=== PATIENT | male | born 1935 | race Caucasian/White ===

== ENCOUNTER 2018-04-24 08:20 | Outpatient (CLI) | payer MEDICARE, BC, OTHER, SELFPAY ==
[2018-04-24] VITALS (14 sets, daily range): BP systolic 107–134; BP diastolic 57–108; PULSE 59–70; RESP 8–18; TEMP 35.9; O2SAT 90–100
--- NOTE | 2018-04-24 08:24 | DI.RAD.S_ITS ---
PROCEDURE: PAIN L/S MED/LAT N RFA BILAT INDICATIONS: facet arthropathy, post fusion syndrome FINDINGS: Fluoroscopic spot filming was performed to verify placement of spinal needles at the left L4-L5, L5-S1, S1-S2, and right L4-L5, L5-S1 level(s), as labeled on the films. Appropriate location(s) of the needle tip(s) was confirmed by injection of iodinated contrast. Dictated by: Joao Butler M.D. on 04/24/2018 at 17:12 Approved by: Joao Butler M.D. on 04/24/2018 at 17:16
--- NOTE | 2018-04-24 08:46 | P.PCN_ITS ---
Procedures Date/Time Date of procedure: 04/24/18 Time of procedure: 10:02 General Procedure description: PREOP DIAGNOSIS 1. RECALCITRANT FACET ARTHROPATHY, POST OP DIAGNOSIS 1. RECALCITRANT FACET ARTHROPATHY PROCEDURES 1. BILATERAL L4 AND L5 MEDIAL BRANCH RADIOFREQUENCY NEUROTOMY AND LEFT S1 DORSAL RAMUS BRANCH RADIOFREQUENCY NEUROTOMY, PHYSICIAN: Asher Whitfield DO INDICATIONS: is referred by for treatment of facet arthropathy. DESCRIPTION OF PROCEDURE Bilateral L4 and L5 medial branch radiofrequency neurotomy and left S1 dorsal ramus radiofrequency neurotomy under fluoroscopy with conscious sedation. The patient is well known to this clinic having undergone previous facet injections with good but temporary relief. The patient has experienced appropriate, concordant relief with previous facet and median branch blocks but the patient's pain has been recalcitrant to further conservative measures. Therefore, based upon the patient's relief and persistent symptoms, the patient is considered an appropriate candidate for facet rhizotomy. All of the patient' s questions regarding the risks versus benefits of the procedure, including, but not limited to, bleeding, infection, temporary as well as lasting nerve injury, paralysis, stroke, and , as well treatment alternatives were answered to satisfaction. After obtaining informed consent, denial of pertinent drug allergies, as well as being made aware of the potential risks of bleeding, infection, spinal cord trauma, paralysis, temporary and permanent nerve damage, seizure, stroke, and possible , the patient was brought to the fluoroscopy suite and positioned prone on the fluoroscopy table. The lumbar region was prepped with Betadine and covered with a fenestrated drape in the usual sterile fashion. Appropriate monitors applied including pulse oximeter, pulse, and blood pressure for regular monitoring throughout the procedure. IV sedation was accomplished with a combination of 5mg of Versed titrated to patient comfort during the course of the procedure while the patient remained responsive to all verbal commands. After local infiltration using 1% lidocaine, under fluoroscopic guidance, a 10- cm RF insulated needle with a 10-mm active tip was positioned parallel to the junction of the left sacral ala and the superior articulating process where the S1 dorsal ramus resides. Needle placement was confirmed with sensory stimulation at 50 Hz, with motor stimulation of .5v on the right which produced local stimulation without radicular component. The stimulation was then increased to 1.5v with, once again, only local multifidus stimulation without radicular component. This was then followed by two discreet lesions performed at 80 degrees Celsius for 90 seconds each. The needle was then removed and the identical procedure was performed along the length of the right L5 medial branch with motor stimulation at .7v on the right. The identical procedure was once again performed along the length of the right L4 medial branch with motor stimulation of .5v on the right. The identical procedure was repeated on the left. The patient was then transferred to the recovery area where they were observed for an appropriate period of time after the injection. The patient reported a VAS score of 9 prior to the procedure and a post-procedure VAS of 0. Total Fluoroscopy Time: 22.7 seconds Total Conscious Sedation Time: 34min POST OP INSTRUCTIONS The patient was provided a Pain Log to continue to record the patient's response to the target-specific procedure prior to the patient's follow-up visit with the referring physician. Additionally, specific post-injection care instructions and a contact number to our office were provided if concerns arise regarding possible complications associated with the procedure are suspected. Asher Whitfield DO Complications: none
[2018-04-24] MEDS: MIDAZOLAM 5 MG/5 ML VIAL IV (09:08)
[2018-04-24] MEDS: LIDOCAINE 1% 20 ML INJ INJ (09:15)
[2018-04-24] MEDS: IOPAMIDOL 15 ML VIAL INJ (09:15)
[2018-04-24] MEDS: BUPIVACAINE 0.25% (PF) 30 ML VIAL 5 ML INJ (09:15)
== END 2018-04-24 10:30 ==
PROVIDERS: Family Provider Family Medicine; PCP Family Medicine; Visit Provider Physical Medicine & Rehabilitation
DX: M47.27 Other spondylosis with radiculopathy, lumbosacral region (principal); Z98.1 Arthrodesis status; M47.26 Other spondylosis with radiculopathy, lumbar region
CPT/HCPCS: 64635; 99152; 99153; J2250; J3010

== ENCOUNTER → 2018-05-04 08:39 | Outpatient (CLI) | payer MEDICARE, BC, OTHER, SELFPAY ==
--- NOTE | 2018-05-04 | DI.ECHO.S_ITS ---
[facility] +---------+ : : [address] : : : : [id number] : : : : Phone: [phone]+ Echocardiogram Report + + :Name: TERRENCE PORTER Study Date: 05/04/2018 Height: 72 in : :[facility] Exam Location: [place] Weight: 245 lb : : Gender: Male BSA: 2.3 m2 : :: 1935 Age: 82 yrs BP: 120/65 mmHg: :Reason For Study: CAD : :Ordering Physician: Renetta Gutierrez : :[place] Performed By: Iraida Page : :Referring: Dr. Holly Goldberg : + + Interpretation Summary Normal left ventricle size with ejection fraction 55-60%. Grade I diastolic dysfunction. Moderately dilated left atrium. Mildly dilated right atrium. The aortic valve is moderately calcified with minimally reduced leaflet mobility. Mild mitral annular calcification. Moderately enlarged ascending aorta. Comparison is made with the echocardiogram of 07/16/2015, there has been no significant change. Procedure: A two-dimensional transthoracic echocardiogram with color flow and Doppler was performed. The study quality was technically adequate. Comparison is made with the echocardiogram of 07/16/2015. The patient was in sinus bradycardia with heart rates between 47-54 bpm during the exam. Left Ventricle: Left ventricular wall thickness is at the upper limits of normal. The left ventricle is normal in size. The ejection fraction is estimated to be 55-60%. There are no obvious focal wall motion abnormalities noted but poor endocardial definition reduces the sensitivity for the detection of such. Assessment of diastolic parameters indicates a relaxation abnormality of the left ventricle, consistent with normal filling pressures. Right Ventricle: The right ventricle is normal in size and function. Atria: The left atrium is moderately dilated. The right atrium is mildly dilated. There is no Doppler evidence for an interatrial shunt. Mitral Valve: The mitral valve leaflets appear thickened, but open well. There is mild mitral annular calcification. There is trace mitral regurgitation. Aortic Valve: The aortic valve is trileaflet. Leaflet mobility is minimally reduced. The aortic valve is moderately calcified. There is no hemodynamically significant valvular aortic stenosis. There is trace aortic regurgitation. Tricuspid Valve: The tricuspid valve is normal in structure and function. There is trace tricuspid regurgitation. The right ventricular systolic pressure is estimated at 30 mmHg assuming a right atrial pressure of 8 mm Hg. Pulmonic Valve: The pulmonic valve is not well visualized. There is mild pulmonic regurgitation. Great Vessels: The aortic root is normal size. The ascending aorta is moderately enlarged. The aortic arch could not be visualized. The pulmonary artery is not well visualized, but is probably normal size. The IVC is dilated (diameter is greater than 2.1 cm) yet it collapses greater than 50% with a sniff. This suggests a right atrial pressure of 8 mm Hg. Pericardium/ Pleura There is no pericardial effusion. There is no pleural effusion. MMode/2D Measurements & Calculations LVIDd: 5.5 cm LVOT diam: 2.6 cm LVIDs: 4.7 cm Ao root diam: 3.7 cm FS: 15.4 % asc Aorta Diam: 4.2 cm EPSS: 1.1 cm IVSd: 1.0 cm LVPWd: 0.94 cm LV peoples. diameter/BSA (cm/m^2): 2.4 LV sys. diameter/BSA (cm/m^2): 2.0 LA A2 area: 29.4 cm2 RA long axis: 7.1 cm LA A4 area: 31.5 cm2 RA area: 26.8 cm2 LA length (vol): 7.1 cm RA vol: 85.9 ml LA vol: 110.7 ml RA : 37.0 ml/m2 LA vol index: 47.7 ml/m2 IVC diam: 2.2 cm TAPSE: 1.7 cm Doppler Measurements & Calculations Ao V2 max: 139.4 cm/sec LVOT Max Gelacio: 75.3 cm/sec Ao V2 mean: 90.3 cm/sec LV V1 max P.3 mmHg Ao max P.8 mmHg LV V1 VTI: 16.4 cm Ao mean P.9 mmHg DANIEL(I,D): 2.8 cm2 Ao V2 VTI: 30.0 cm DANIEL(V,D): 2.8 cm2 sev ratio: 0.55 DANIEL indexed to BSA (cm^2/m^2): 1.2 MV E max gelacio: 75.9 cm/sec TR max gelacio: 232.9 cm/sec MV A max gelacio: 88.2 cm/sec TR max P.7 mmHg MV E/A: 0.86 PA V2 max: 58.8 cm/sec Med Peak E' Gelacio: 5.7 cm/sec PA V2 mean: 37.0 cm/sec E/E' med: 13.4 PA mean P.62 mmHg Lat Peak E' Gelacio: 7.2 cm/sec PA Accel Time: 0.06 sec E/E' lat: 10.5 E/e' average: 11.9 MV dec time: 0.21 sec MV P1/2t: 61.8 msec MV t max gelacio: 76.8 cm/sec MVA(2t): 3.6 cm2 Electronically signed by: Renetta Perrin on Reading Physician:05/07/2018 04:21 PM
== END ==
PROVIDERS: Family Provider Family Medicine; PCP Family Medicine; Visit Provider Internal Medicine Interventional Cardiology
DX: I25.10 Atherosclerotic heart disease of native coronary artery without angina pectoris (principal)
CPT/HCPCS: 93306

== ENCOUNTER → 2018-06-06 19:28 | Outpatient (REF) | payer MEDICARE, BC, OTHER, SELFPAY | LOC: LAB 19:28 | PROVIDERS: Family Provider Family Medicine; PCP Family Medicine; Visit Provider Physician Assistant | DX: L82.1 Other seborrheic keratosis (principal); L02.212 Cutaneous abscess of back [any part, except buttock and flank] | CPT/HCPCS: 87070; 87075; 87205 ==

== ENCOUNTER → 2018-06-12 15:25 | Outpatient (REF) | payer MEDICARE, BC, OTHER, SELFPAY | LOC: LAB 15:25 | PROVIDERS: Family Provider Family Medicine; PCP Family Medicine; Visit Provider Dermatology MOHS-Micrographic Surgery | DX: L72.0 Epidermal cyst (principal) | CPT/HCPCS: 87070; 87075; 87205 ==

== ENCOUNTER → 2018-06-25 12:46 | Outpatient (CLI) | payer MEDICARE, BC, OTHER, SELFPAY ==
--- NOTE | 2018-06-25 12:49 | DI.RAD.S_ITS ---
PROCEDURE: XR KNEE RT 3V INDICATIONS: Knee DJD TECHNIQUE: 3 views of the knee were acquired. COMPARISON: None. FINDINGS: Bones: No fractures or dislocations. No suspicious bony lesions. There are small tricompartmental osteophytes. Soft tissues: No joint effusion. No suspicious soft tissue calcifications. A soft tissue calcification is present superior to the patella which may represent a small intra-articular body. There are scattered soft tissue vascular calcifications. IMPRESSION: 1. Mild degenerative change. 2. Questionable intra-articular body. Dictated by: Kimberly Rahman M.D. on 06/25/2018 at 14:39 Approved by: Kimberly Rahman M.D. on 06/25/2018 at 14:40
--- NOTE | 2018-06-25 12:49 | DI.RAD.S_ITS ---
PROCEDURE: XR KNEE LT 3V INDICATIONS: Knee DJD TECHNIQUE: 3 views of the knee were acquired. COMPARISON: None. FINDINGS: Bones: No fractures or dislocations. No suspicious bony lesions. There are small tricompartmental osteophytes. Soft tissues: No joint effusion. No suspicious soft tissue calcifications. Surgical clips are scattered throughout the soft tissues. There are scattered soft tissue vascular calcifications. IMPRESSION: Degenerative change. Dictated by: Kimberly Rahman M.D. on 06/25/2018 at 14:39 Approved by: Kimberly Rahman M.D. on 06/25/2018 at 14:39
== END ==
PROVIDERS: Family Provider Family Medicine; PCP Family Medicine; Visit Provider Physical Medicine & Rehabilitation
DX: M17.0 Bilateral primary osteoarthritis of knee (principal)
CPT/HCPCS: 73562

== ENCOUNTER 2018-11-08 13:21 | Emergency (ER) | payer MEDICARE, BC, OTHER, SELFPAY ==
--- NOTE | 2018-11-08 13:28 | ED_ITS ---
HPI - Fall <Sheryl Sharma PA-C - Last Filed: 11/08/18 21:32> General Chief Complaint: Back Pain/Injury Stated Complaint: FELL, NECK AND SHOULDER PAIN Time Seen by Provider: 11/08/18 13:26 Source: patient Mode of arrival: ambulatory Limitations: no limitations History of Present Illness HPI Narrative: this 83-year-old gentleman states that a large Labrador jumped up on his chest to grab a duck (he was out hunting with friends) pushing him backward, and he fell onto his bottom. He landed on the dirt, and states that this jolted his back and spine. He states that he did not hit his head or neck, but felt his neck snap back and forth, and since then has pain when he moves his neck. He states that he does not have pain in his shoulders or extremities. He denies any weakness or numbness in the extremities, and was able to get up and walk. He denies any changes in bowel or bladder function nor groin numbness. He did not hit his head or neck or pass out. His friends who are with him concur with this. Related Data Home Medications Medication Instructions Recorded Confirmed ASCORBIC ACID (VITAMIN C) 1,000 mg PO Q DAY #0 06/28/11 08/09/18 BIOTIN/CA PANTOTHENATE/FOLIC2 1 tab PO Q DAY #0 06/28/11 08/09/18 (VITAMIN B100) [place]/Calcium/Copper/[place] 1 tab PO Q DAY #0 06/28/11 08/09/18 (#CALCIUM CITRATE +) CA PANTOTHENATE/FOLIC ACID/VIT 1 tab PO QDAY #0 06/28/11 08/09/18 (MULTIVITAMIN) GLUC MEYER/CHONDRO MEYER A/VIT C/MN 1 cap PO Q DAY #0 06/28/11 08/09/18 (Glucosamine 1,500 Complex Cp) NITROGLYCERIN (#NITROSTAT) 0.4 mg SUBLINGUAL PRN #0 06/28/11 08/09/18 VITAMIN D (Vitamin D3) 1,000 unit PO QDAY #0 06/28/11 08/09/18 aspirin 81 mg PO QDAY #0 06/28/11 08/09/18 cetirizine 10 mg PO QDAY #0 12/23/17 08/09/18 acetaminophen 325 mg capsule 650 mg PO Q6H PRN 04/12/18 08/09/18 allopurinol 300 mg tablet 300 mg PO DAILY 04/12/18 11/08/18 finasteride 5 mg tablet 5 mg PO DAILY 04/12/18 11/08/18 fluticasone 50 mcg/actuation nasal 2 spray NASAL DAILY 04/12/18 08/09/18 spray,suspension folic acid 1 mg tablet 1 mg PO DAILY 04/12/18 11/08/18 lisinopril 10 mg tablet 10 mg PO DAILY 04/12/18 11/08/18 metoprolol tartrate 25 mg tablet 12.5 mg PO BID tab 04/12/18 11/08/18 nitroglycerin 0.4 mg sublingual 0.4 mg SL Q5M PRN 04/12/18 08/09/18 tablet omeprazole 20 mg capsule,delayed 20 mg PO BID 04/12/18 11/08/18 release atorvastatin 80 mg PO DAILY 11/08/18 11/08/18 warfarin [Jantoven] 4 mg PO DAILY 11/08/18 11/08/18 Previous Rx's Medication Instructions Recorded disabled parking See Label Instructions .ROUTE 04/12/18 .COMPLEX #1 lidocaine 4 % topical patch 1 patch TOP Q12H PRN #30 each 05/10/18 Allergies Allergy/AdvReac Type Severity Reaction Status Date / Time lorazepam AdvReac Intermediate HALLUCINATIONS; Verified 11/08/18 13:30 ICU REQUIRED chlorpromazine AdvReac Mild HICCUPS Verified 11/08/18 13:30 Review of Systems <Sheryl Sharma PA-C - Last Filed: 11/08/18 21:32> Review of Systems All systems reviewed & are unremarkable except as noted in HPI and below Exam <Sheryl Sharma PA-C - Last Filed: 11/08/18 21:32> Narrative Exam Narrative: GENERAL APPEARANCE: Patient sitting comfortably, in no distress. HEENT: PERRL, EOMI, normal oropharynx PULMONARY: Lungs clear to auscultation bilaterally CV: Regular rhythm regular without murmur, , occasional single skips, normal S1 and S2, no S3 or S4 MUSCULOSKELETAL: No point tenderness over the cervical, thoracic, or lumbar / sacral spine. no point tenderness over the cervical paraspinal musculature. He is able to fully flex the neck, but is tender with bilateral lateral bend which is reduced more to the left and right. Also reduced neck rotation with tenderness. Full range of motion of the upper extremities without tenderness. Strength 5/5 bilateral shoulder shrug, biceps, ft plantar flexion. Lower extremity strength 5/5 bilateral hip flexors, knee extensors, foot plantar flexion. NEUROLOGIC: Patient is alert and oriented with normal speech and coordination Initial Vital Signs Initial Vital Signs: Vital Signs Temperature 97.8 F 11/08/18 13:30 Pulse Rate 59 L 11/08/18 13:30 Respiratory Rate 15 11/08/18 13:30 Blood Pressure 145/64 H 11/08/18 13:30 Pulse Oximetry 98 11/08/18 13:30 <Kentrell Palafox DO - Last Filed: 11/08/18 22:44> Initial Vital Signs Initial Vital Signs: Vital Signs Temperature 97.8 F 11/08/18 13:30 Pulse Rate 59 L 11/08/18 13:30 Respiratory Rate 15 11/08/18 13:30 Blood Pressure 145/64 H 11/08/18 13:30 Pulse Oximetry 98 11/08/18 13:30 Course <Sheryl Sharma PA-C - Last Filed: 11/08/18 21:32> Additional Information: patient does not have any evidence of acute spine injury, no bony point tenderness or paravertebral tenderness. No new neurologic symptoms. Advised based on this and his history I do not think imaging is needed, however reviewed signs and symptoms for which he might need to return. He is agreeable with using medications he already has at home and monitoring, and will follow up with PCP. He will return if any acutely worsening or new symptoms. Orders Ordered: Discontinued Medications Acetaminophen (Tylenol) 325 mg PO Q6HR PRN PRN Reason: As Needed for Fever/Mild Pain Last Admin: 11/08/18 14:00 Dose: 325 mg Tramadol HCl (Ultram) 50 mg PO NOW ONE Stop: 11/08/18 13:51 Last Admin: 11/08/18 14:01 Dose: 50 mg Vital Signs - 8 hr 11/08/18 14:02 11/08/18 14:39 Pulse Rate 63 64 Respiratory Rate 18 Blood Pressure 106/63 Blood Pressure [Right Arm] 127/66 Pulse Oximetry 98 96 <DO Siobhan Guadalupe Last Filed: 11/08/18 22:44> Orders Ordered: Discontinued Medications Acetaminophen (Tylenol) 325 mg PO Q6HR PRN PRN Reason: As Needed for Fever/Mild Pain Last Admin: 11/08/18 14:00 Dose: 325 mg Tramadol HCl (Ultram) 50 mg PO NOW ONE Stop: 11/08/18 13:51 Last Admin: 11/08/18 14:01 Dose: 50 mg Vital Signs - 8 hr 11/08/18 14:02 11/08/18 14:39 Pulse Rate 63 64 Respiratory Rate 18 Blood Pressure 106/63 Blood Pressure [Right Arm] 127/66 Pulse Oximetry 98 96 Discharge Plan Departure Patient Disposition: Home Clinical Impression: Acute whiplash injury, Contusion of coccyx, History of pulmonary embolism Discharge Date/Time: 11/08/18 14:40 Interventions: ED Discharge Assessment Last Done: 11/08/18 14:39 Instructions: DI for Whiplash Activity Restrictions/Additional Instructions: please return as we talked about if you have acutely worsening symptoms, or new symptoms such as weakness or numbness in your extremities, or difficulty urinating. you can take your tramadol that you have at home for pain. Take 1 tablet every 4-6 hours with a Tylenol as needed. You can use the Valium that you already have as needed for muscle tightness, but remember that these medicines can make you sleepy and not to drive. Continue to use an ice pack today and you may want to change to a heating pad or alternate them tomorrow. You can also use [id number] topical rubs such as Lit-Martinez or patches such as lidocaine patch to help with pain. Please follow-up with your PCP next week to assess your progress in determine whether you might need further treatment such as physical therapy. Prescriptions: No Action ASCORBIC ACID (VITAMIN C) 1,000 mg PO Q DAY Qty: 0 RF: 0 aspirin 81 MG tablet,delayed release (DR/EC) 81 mg PO QDAY Qty: 0 RF: 0 BIOTIN/CA PANTOTHENATE/FOLIC2 (VITAMIN B100) 1 tab PO Q DAY Qty: 0 RF: 0 [place]/Calcium/Copper/[place] (#CALCIUM CITRATE +) 1 tab PO Q DAY Qty: 0 RF: 0 CA PANTOTHENATE/FOLIC ACID/VIT (MULTIVITAMIN) 1 tab PO QDAY Qty: 0 RF: 0 GLUC MEYER/CHONDRO MEYER A/VIT C/MN (Glucosamine 1,500 Complex Cp) 1 cap PO Q DAY Qty: 0 RF: 0 NITROGLYCERIN (#NITROSTAT) 0.4 mg Sublingual PRN Qty: 0 RF: 0 VITAMIN D (Vitamin D3) 1,000 unit PO QDAY Qty: 0 RF: 0 cetirizine 10 MG tablet 10 mg PO QDAY Qty: 0 RF: 0 atorvastatin 80 mg tablet 80 mg PO DAILY RF: 0 warfarin [Jantoven] 4 mg tablet 4 mg PO DAILY RF: 0 lidocaine 4 % adhesive patch,medicated 1 patch TOP Q12H PRN (Reason: pain) Qty: 30 RF: 2 betamethasone acet,sod phos 6 mg/mL suspension 12 mg INTRA-ASHLY ONCE Qty: 1 RF: 0 metoprolol tartrate 25 mg tablet 12.5 mg PO BID RF: 0 allopurinol 300 mg tablet 300 mg PO DAILY RF: 0 lisinopril 10 mg tablet 10 mg PO DAILY RF: 0 finasteride [Proscar] 5 mg tablet 5 mg PO DAILY RF: 0 omeprazole 20 mg capsule,delayed release(DR/EC) 20 mg PO BID RF: 0 fluticasone 50 mcg/actuation spray,suspension 2 spray NASAL DAILY RF: 0 nitroglycerin [Nitrostat] 0.4 mg tablet, sublingual 0.4 mg SL Q5M PRNRF: 0 acetaminophen [Tylenol] 325 mg capsule 650 mg PO Q6H PRNRF: 0 folic acid 1 mg tablet 1 mg PO DAILY RF: [address] See Label Instructions .ROUTE .COMPLEX Qty: 1 RF: 0 Referrals: Holly Goldberg MD [Primary Care Provider] - <Kentrell Palafox DO - Last Filed: 11/08/18 22:44> Cosign ED Attending Cosignature Attestation: I was available for consultation during this patient's emergency department encounter
[2018-11-08 13:30] VITALS: BP 145/64; PULSE 59; RESP 15; TEMP 36.6; O2SAT 98; BMI 33.2
[2018-11-08] MEDS: ACETAMINOPHEN 325 MG TABLET PO (14:00)
[2018-11-08] MEDS: TRAMADOL 50 MG TABLET PO (14:01)
[2018-11-08 14:02] VITALS: BP 127/66; PULSE 63; O2SAT 98
[2018-11-08 14:39] VITALS: BP 106/63; PULSE 64; RESP 18; O2SAT 96
== END 2018-11-08 14:40 | disposition home or self-care (01) ==
PROVIDERS: Emergency Provider Internal Medicine; Family Provider Family Medicine; PCP Family Medicine
DX: S13.4XXA Sprain of ligaments of cervical spine, initial encounter (principal); S30.0XXA Contusion of lower back and pelvis, initial encounter; W54.1XXA Struck by dog, initial encounter; Z86.711 Personal history of pulmonary embolism
CPT/HCPCS: 99282; 99283

== ENCOUNTER → 2018-12-06 09:04 | Outpatient (CLI) | payer MEDICARE, BC, OTHER, SELFPAY ==
--- NOTE | 2018-12-06 | DI.CT.S_ITS ---
PROCEDURE: CT ABDOMEN WO/W CON INDICATIONS: HISTORY OF RENAL CELL CARCINOMA TECHNIQUE: Optional 5 mm thick noncontrast images acquired from the diaphragm to the iliac crests. After the administration of intravenous contrast, 5 mm thick images again acquired from the diaphragm to the iliac crests in the arterial and urographic phases. 5 mm thick coronal and sagittal reformats were then acquired. For radiation dose reduction, the following was used: automated exposure control, adjustment of mA and/or kV according to patient size. COMPARISON: [facility], CT, ANGIO CHEST ABDOMEN PELVIS, 12/23/2017, 3:56. [facility], CT, ABDOMEN W&WO CONTRAST, 06/24/2015, 10:11. FINDINGS: Image quality: Excellent. Lung bases: There is a small right lower lobe pulmonary nodule measuring up to 0.7 cm which appears similar to the prior study studies. Small subpleural nodules in the left lower lobe on images 12 and 19 and measuring up to 4 mm also appear unchanged. Minimal dependent atelectasis is demonstrated. Heart size is normal. Genitourinary: There are postoperative changes redemonstrated within the medial right kidney consistent with prior partial nephrectomy. 2 stable right renal cysts are demonstrated as well as additional small low-density foci which are too small to characterize but appears similar to the prior study and likely represent cysts. Small cysts are also demonstrated within the left kidney. There is a fat containing exophytic mass anteriorly along the left kidney measuring up to 4.0 x 2.8 cm which appears stable compared to the prior studies and is consistent with potential mild pulmonary no hydronephrosis. The opacified renal collecting systems demonstrate no suspicious filling defects. Other solid organs: No focal hepatic lesions identified. The gallbladder is surgically absent. Biliary system is non dilated. Pancreas enhances normally. Spleen is normal in size and enhancement. No adrenal nodules. Peritoneum and bowel: Unenhanced bowel loops are normal in wall thickness and caliber. No free fluid or air. Nodes and vessels: No retroperitoneal or mesenteric adenopathy by size criteria. Aorta and inferior vena cava are normal in caliber. Bones: No suspicious bony lesions. No vertebral body compression fractures. Miscellaneous: No ventral hernias. IMPRESSION: 1. No evidence of new recurrent or metastatic disease. 2. Postsurgical changes redemonstrated in the right kidney. 3. Small pulmonary nodules in the lung bases appear stable compared to the prior studies. Dictated by: Tim Olvera M.D. on 12/06/2018 at 13:57 Approved by: Tim Olvera M.D. on 12/06/2018 at 14:31
[2018-12-06 10:18] LABS: Alanine Aminotransferase 40 IU/L (21-72); Albumin 4.1 g/dL (3.5-5.0); Albumin Globulin Ratio 1.6 (1.0-2.8); Alkaline Phosphatase 109 U/L (38-126); Aspartate Aminotransferase 33 IU/L (17-59); BUN Creatinine Ratio 19.1 (6-22); Bilirubin Total 0.7 mg/dL (0.2-1.3); Blood Urea Nitrogen 21 mg/dL (9-20); Carbon Dioxide 28 mmol/L (22-32); Chloride 102 mmol/L (98-107); Estimated Glomerular Filt Rate > 60.0 mL/min (>60); Globulin 2.5 g/dL (1.7-4.1); Glucose 98 mg/dL (80-110); HEMOLYSIS < 15 (0-50); Potassium 4.7 mmol/L (3.4-5.1); Sodium 140 mmol/L (137-145); Total Protein 6.6 g/dL (6.3-8.2)
== END ==
PROVIDERS: PCP Family Medicine; Visit Provider Urology
DX: N28.1 Cyst of kidney, acquired (principal); R91.8 Other nonspecific abnormal finding of lung field; Z85.528 Personal history of other malignant neoplasm of kidney; Z90.49 Acquired absence of other specified parts of digestive tract
CPT/HCPCS: 36415; 74170; 80053; Q9967

== ENCOUNTER → 2018-12-20 12:39 | Outpatient (CLI) | payer MEDICARE, BC, OTHER, SELFPAY ==
--- NOTE | 2018-12-20 | DI.RAD.S_ITS ---
PROCEDURE: XR CHEST 2V INDICATIONS: HISTORY OF RENAL CELL CARCINOMA TECHNIQUE: 2 views of the chest were acquired. COMPARISON: [facility], , CHEST 1 VIEW, 12/23/2017, 3:01. [facility], , CHEST 2 VIEW, 06/27/2017, 15:33. FINDINGS: Surgical changes and devices: Surgical clips suggestive of prior CABG. Lungs and pleura: No pleural effusions or pneumothorax. Lungs are clear. Mediastinum: Mediastinal contours are normal. Heart size is normal. Bones and chest wall: No suspicious bony abnormalities. Soft tissues appear unremarkable. IMPRESSION: Stable over time, presumed prior CABG. No metastatic disease seen. Dictated by: Abelardo Kate M.D. on 12/20/2018 at 14:47 Approved by: Abelardo Kate M.D. on 12/20/2018 at 14:55
== END ==
PROVIDERS: PCP Family Medicine; Visit Provider Urology
DX: Z85.528 Personal history of other malignant neoplasm of kidney (principal)
CPT/HCPCS: 71046

== ENCOUNTER → 2019-05-15 11:33 | Outpatient (CLI) | payer MEDICARE, BC, OTHER, SELFPAY ==
--- NOTE | 2019-05-15 | DI.RAD.S_ITS ---
PROCEDURE: XR ABDOMEN 1V INDICATIONS: Calculus of kidney TECHNIQUE: One view of the abdomen acquired. COMPARISON: None. FINDINGS: Surgical changes and devices: None. Bowel: Bowel gas pattern is normal. Soft tissues: 5.5 mm triangular shaped calcification is seen projecting the region of lower pole left kidney. Multiple surgical clips are noted in the region of right renal fossa. No definite right sided renal calcification is seen. Small calcifications are noted in bilateral pelvis, likely represent phleboliths. Visualized solid organ contours appear normal in size. Bones: No suspicious bony lesions. Patient is status post prior right posterior fusion at L5-S1 level and right hip arthroplasty. IMPRESSION: 5.5 mm calcification in the region of lower pole left kidney. Postsurgical changes in right renal fossa. Suggestion of phlebolith in the lower pelvis. Dictated by: Giacomo Fowler M.D. on 05/15/2019 at 13:52 Approved by: Giacomo Fowler M.D. on 05/15/2019 at 13:53
== END ==
PROVIDERS: PCP Family Medicine; Visit Provider Urology
DX: N20.0 Calculus of kidney (principal); Z98.1 Arthrodesis status; Z96.641 Presence of right artificial hip joint
CPT/HCPCS: 74018

== ENCOUNTER 2019-05-16 08:47 | Outpatient (CLI) | payer MEDICARE, BC, OTHER, SELFPAY ==
[2019-05-16] VITALS (8 sets, daily range): BP systolic 103–127; BP diastolic 52–70; PULSE 56–61; RESP 16–18; TEMP 36.6; O2SAT 97–100
--- NOTE | 2019-05-16 08:51 | DI.RAD.S_ITS ---
PROCEDURE: PAIN L/S FACET INJ/BLK 1ST DEEPALI COMPARISON: None. INDICATIONS: SPINAL STENOSIS Fluoroscopic spot filming was performed to verify placement of spinal needles at the L3-4 and L4-L5 level(s), as labeled on the films. Appropriate location(s) of the needle tip(s) was confirmed by injection of iodinated contrast. Dictated by: Joao Butler M.D. on 05/17/2019 at 8:43 Approved by: Joao Butler M.D. on 05/17/2019 at 8:44
[2019-05-16] MEDS: fentaNYL 100 MCG/2 ML INJ 50 MCG IV (10:15)
[2019-05-16] MEDS: MIDAZOLAM 5 MG/5 ML VIAL IV (10:15)
--- NOTE | 2019-05-16 10:27 | PC.NURSE ---
pt tolerated procedure well. Able to get of table with minimal assist, pt moving very slowly related to back pain. Transferred pt via wheelchair to pre procedure room for continued monitoring with Meghna YOU.
--- NOTE | 2019-05-16 10:29 | P.PCN_ITS ---
Procedures Date/Time Date of procedure: 05/16/19 Time of procedure: 10:28 General Procedure description: PREOP DIAGNOSIS 1. FACET ARTHROPATHY 2. AXIAL LBP 3. MULTILEVEL DDD POST OP DIAGNOSIS 1. FACET ARTHROPATHY 2. AXIAL LBP 3. MULTILEVEL DDD PROCEDURES 1. FLUORSCOPICALLY GUIDED CONTRAST CONTROLLED FACET JOINT INJECTIONS BILATERAL L3/4, L4/5 PHYSICIAN: Asher Whitfield DO INDICATIONS: Ulices is referred by Dr. Goldberg for treatment of Axial LBP FINDINGS Multilevel Facet Arthropathy with Clinically significant axial LBP DESCRIPTION OF PROCEDURE Fluoroscopically guided, contrast-controlled bilateral L3/4, L4/5 facet joint injections. Following review of allergy and review of potential side effects and complications, including, but not necessarily limited to, infection, allergic reaction, local tissue breakdown, stroke, temporary or permanent nerve injury, paralysis, and possible , the patient indicated that the patient understood and agreed to proceed. An informed consent document was signed by the patient, witnessed by a nurse, and placed in the patient's chart. Additionally, other treatment options including medications, modalities, and physical therapy were reviewed with the patient. After review of previous anaesthesic history and IV conscious sedation the patient was deemed safe to proceed with todays procedure with IV conscious sedation as ASA class II designation. Safety time-out was performed to confirm patient ID, procedure to be performed and site of procedure. IV sedation was accomplished with a combination of 2mg of Versed and 50mcg of Fentanyl was administered by the RN after DO order, titrated to patient comfort during the course of the procedure while the patient remained responsive to all verbal commands. In the prone position, following sterile prep and drape of the lumbar region, the posterior aspect of the L3/4, L4/5 facet joints were identified fluoroscopically. The skin was anesthetized via a 25-gauge 1.5-inch needle with 1% lidocaine solution into the corresponding facet joints. At this point, a 22- gauge 3.5-inch spinal needle was atraumatically introduced and advanced under fluoroscopic guidance into the corresponding facet joints. Following negative aspiration, injections of approximately 0.2-cc of Isovue 200 confirmed interarticular placement without vascular uptake. The identical procedure was then performed at the L3/4, L4/5 facet joints on the left. Radiological data, including multiple fluoroscopic views of the lumbosacral spine, reveal a spinal needle at the L3/4, L4/5 facet joints bilaterally. Subsequent views show flow of contrast material both superiorly and inferiorly within the joint space without vascular or intrathecal uptake. At this point, a total of 0.5 cc including a mixture of 0.25 cc Marcaine and 0.25 cc betamethasone was injected without complication into each of the corresponding facet joints. The patient tolerated the procedure well without signs or symptoms of complications prior to transfer to the recovery area continued monitoring without incident. The patient was then transferred to the recovery area where they were observed for an appropriate period of time after the injection. The patient reported a VAS score of 7 prior to the procedure and a post-procedure VAS of 0. Total Fluoroscopy Time: 20.3 seconds Total Conscious Sedation Time: 24min POST OP INSTRUCTIONS The patient was provided a Pain Log to continue to record their response to the target-specific procedure prior to follow-up visit with their referring physician. Additionally, specific post-injection care instructions and a contact number to our office were provided if concerns arise regarding possible complications associated with the procedure are suspected. Asher Whitfield DO Complications: none
--- NOTE | 2019-05-16 10:40 | PC.NURSE ---
ACCEPTED CARE OF PT IN POST PROC AREA IN STABLE CONDITION
[2019-05-16] MEDS: BUPIVACAINE 0.5% (PF) VIAL 2 ML INJ (10:41)
[2019-05-16] MEDS: BETAMETHASONE 30 MG/5 ML MDV 12 MG INJ (10:41)
[2019-05-16] MEDS: LIDOCAINE 1% 20 ML INJ 5 ML INJ (10:41)
[2019-05-16] MEDS: IOPAMIDOL 15 ML VIAL 3 ML INJ (10:41)
== END 2019-05-16 11:19 | disposition home or self-care (01) ==
LOC: RAD 08:50
PROVIDERS: PCP Family Medicine; Visit Provider Physical Medicine & Rehabilitation
DX: M47.816 Spondylosis without myelopathy or radiculopathy, lumbar region (principal); M54.5 Low back pain; M51.36 Other intervertebral disc degeneration, lumbar region
CPT/HCPCS: 64493; 64494; 99152; J0702; J2250; J3010

== ENCOUNTER 2019-09-03 11:07 | Outpatient (CLI) | payer MEDICARE, BC, OTHER, SELFPAY ==
[2019-09-03] VITALS (11 sets, daily range): BP systolic 107–144; BP diastolic 54–75; PULSE 54–73; RESP 16; TEMP 35.9; O2SAT 94–100
--- NOTE | 2019-09-03 11:10 | DI.RAD.S_ITS ---
PROCEDURE: PAIN L/S MED/LAT N RFA INDICATIONS: SPONDYLOSIS FINDINGS: Fluoroscopic spot filming was performed to verify placement of spinal needles at the L3, L4 and L5 level(s), as labeled on the films. Appropriate location(s) of the needle tip(s) was confirmed by injection of iodinated contrast. IMPRESSION: Fluoroscopy for pain management. Dictated by: Concepcion Cheek M.D. on 09/03/2019 at 18:10 Approved by: Concepcion Cheek M.D. on 09/03/2019 at 18:11
[2019-09-03] MEDS: MIDAZOLAM 5 MG/5 ML VIAL IV (12:14)
[2019-09-03] MEDS: fentaNYL 100 MCG/2 ML INJ 50 MCG IV (12:14)
[2019-09-03] MEDS: LIDOCAINE 1% 20 ML 10 ML INJ (12:26)
[2019-09-03] MEDS: BETAMETHASONE 30 MG/5 ML MDV 12 MG INJ (12:26)
[2019-09-03] MEDS: BUPIVACAINE 0.5% (PF) VIAL 2 ML INJ (12:26)
--- NOTE | 2019-09-03 12:34 | PC.NURSE ---
ASSISTING PT OFF TABLE AND TRANSPORTING TO POST PROC AREA IN STABLE CONDITION. PASSING RN CARE OF PT OFF THE DESTINEE Pedraza RN.
--- NOTE | 2019-09-03 12:43 | P.PCN_ITS ---
Procedures Date/Time Date of procedure: 09/03/19 Time of procedure: 12:43 General Procedure description: PREOP DIAGNOSIS 1. RECALCITRANT FACET ARTHROPATHY, POST OP DIAGNOSIS 1. RECALCITRANT FACET ARTHROPATHY PROCEDURES 1. RIGHT L3, L4 AND L5 MEDIAL BRANCH RADIOFREQUENCY NEUROTOMY PHYSICIAN: Asher Whitfield DO INDICATIONS: Ulices is referred by Dr. Goldberg for treatment of facet arthropathy. DESCRIPTION OF PROCEDURE Right L3, L4 and L5 medial branch radio-frequency neurotomy The patient is well known to this clinic having undergone previous facet injections with good but temporary relief. The patient has experienced wiley ropriate, concordant relief with previous facet and median branch blocks but the patient's pain has been recalcitrant to further conservative measures. Therefore, based upon the patient's relief and persistent symptoms, the patient is considered an appropriate candidate for facet rhizotomy. All of the patient's questions regarding the risks versus benefits of the procedure, including, but not limited to, bleeding, infection, temporary as well as lasting nerve injury, paralysis, stroke, and , as well treatment alternatives were answered to satisfaction. After obtaining informed consent, denial of pertinent drug allergies, as well as being made aware of the potential risks of bleeding, infection, spinal cord trauma, paralysis, temporary and permanent nerve damage, seizure, stroke, and possible , the patient was brought to the fluoroscopy suite and positioned prone on the fluoroscopy table. The lumbar region was prepped with Betadine and covered with a fenestrated drape in the usual sterile fashion. Appropriate monitors applied including pulse oximeter, pulse, and blood pressure for regular monitoring throughout the procedure. After review of previous anaesthesic history and IV conscious sedation the patient was deemed safe to proceed with todays procedure with IV conscious sedation as ASA class II designation. Safety time-out was performed to confirm patient ID, procedure to be performed and site of procedure. IV sedation was accomplished with a combination of 2mg of Versed and 50mcg of Fentanyl administered by the RN after DO order, titrated to patient comfort during the course of the procedure while the patient remained responsive to all verbal commands. After local infiltration using 1% lidocaine, under fluoroscopic guidance, a 10- cm RF insulated needle with a 10-mm active tip was positioned parallel to the junction of the right the superior articulating process where the L3 medial branch resides. Needle placement was confirmed with sensory stimulation at 50 Hz, with motor stimulation of .5v on the right which produced local stimulation without radicular component. The stimulation was then increased to 1.5v with, once again, only local multifidus stimulation without radicular component. This was then followed by two discreet lesions performed at 80 degrees Celsius for 90 seconds each. The needle was then removed and the identical procedure was performed along the length of the right L4 medial branch with motor stimulation at .7v on the right. The identical procedure was once again performed along the length of the right L5 and medial branch with motor stimulation of .5v on the right. The patient tolerated the procedure well without signs or symptoms of complications prior to transfer to the recovery area continued monitoring without incident. The patient was then transferred to the recovery area where they were observed for an appropriate period of time after the injection. The patient reported a VAS score of 9 prior to the procedure and a post-procedure VAS of 0. Total Fluoroscopy Time: 22.7 seconds Total Conscious Sedation Time: 34min POST OP INSTRUCTIONS The patient was provided a Pain Log to continue to record the patient's response to the target-specific procedure prior to the patient's follow-up visit with the referring physician. Additionally, specific post-injection care instructions and a contact number to our office were provided if concerns arise regarding possible complications associated with the procedure are suspected. Asher Whitfield DO Complications: none
--- NOTE | 2019-09-03 16:53 | PC.NURSE ---
Late entry: Discharge note- VSS, O2 Sat WNL, Tolerating PO. No complaints of unusual numbness or tingling to lower extremity. Able to stand without difficulty independently. Transfered to W/C. discharged to home w/c to car.
== END 2019-09-03 13:25 ==
LOC: RAD 11:10
PROVIDERS: Family Provider Family Medicine; PCP Family Medicine; Visit Provider Physical Medicine & Rehabilitation
DX: M47.816 Spondylosis without myelopathy or radiculopathy, lumbar region (principal)
CPT/HCPCS: 64635; 64636; 99152; 99153; J0702; J2250; J3010

== ENCOUNTER → 2019-09-18 16:02 | Outpatient (CLI) | payer MEDICARE, BC, OTHER, SELFPAY ==
--- NOTE | 2019-09-18 16:13 | DI.RAD.S_ITS ---
PROCEDURE: XR LUMBAR SPINE MIN 4V INDICATIONS: Recent fall status post fusion TECHNIQUE: 5 views of the lumbar spine acquired. COMPARISON: [facility] VERA Quintanilla, SPINE LUMB 2 OR 3VW, 01/06/2016, 9:49. [facility] VERA Quintanilla, XR LUMBAR SPINE WITH OBLIQUES, 09/19/2017, 15:15. FINDINGS: Bones: 5 nonrib-bearing vertebrae are present. There is normal bony alignment. No vertebral body compression fractures. No suspicious bony lesions. Right pedicle screws in mehran at the L5-S1 level unchanged from prior examination. Grade 1 spondylolisthesis again seen at the L5-S1 level which appears similar to prior examination. Multilevel disc degeneration, severe at the L5-S1 level and there is moderate to severe lower lumbar spine facet joint arthropathy . Right hip arthroplasty incompletely visualized. Soft tissues: Overlying bowel gas pattern is normal. No suspicious soft tissue calcifications. Right upper quadrant surgical clips. Flexion/extension: There is normal range of motion, with preserved normal alignment. IMPRESSION: 1. Stable postsurgical changes at the L5-S1 level. 2. Multilevel degenerative change again seen throughout the lumbar spine. Dictated by: Les MARQUES Interpreted: Bolivar García MD on 09/18/2019 at 16:33 Approved by: Bolivar García M.D. on 09/18/2019 at 17:23
== END ==
PROVIDERS: PCP Family Medicine; Visit Provider Physical Medicine & Rehabilitation
DX: M47.816 Spondylosis without myelopathy or radiculopathy, lumbar region (principal); M47.817 Spondylosis without myelopathy or radiculopathy, lumbosacral region; Z98.1 Arthrodesis status; Z96.641 Presence of right artificial hip joint
CPT/HCPCS: 72110; 99214

== ENCOUNTER → 2019-12-04 08:47 | Outpatient (CLI) | payer MEDICARE, BC, OTHER, SELFPAY ==
--- NOTE | 2019-12-04 | DI.CT.S_ITS ---
PROCEDURE: CT ABDOMEN WO/W CON INDICATIONS: History of renal cell carcinoma TECHNIQUE: Optional 5 mm thick noncontrast images acquired from the diaphragm to the iliac crests. After the administration of intravenous contrast, 5 mm thick images again acquired from the diaphragm to the iliac crests in the arterial and urographic phases. 5 mm thick coronal and sagittal reformats were then acquired. For radiation dose reduction, the following was used: automated exposure control, adjustment of mA and/or kV according to patient size. COMPARISON: [facility], CT, KIDNEY/ URETER/BLADDER, 06/03/2016, 13:21. [facility], CT, THORAX WITHOUT CONTRAST, 12/15/2016, 14:24. [facility], CT, ANGIO CHEST ABDOMEN PELVIS, 12/23/2017, 3:56. [facility], CT, CT ABDOMEN WO/W CON, 12/06/2018, 9:45. FINDINGS: Image quality: Excellent. Lung bases: There are 2 small nodules in the left lower lobe measuring up to 4 mm which appear stable compared to the prior studies. Heart size is normal. Genitourinary: Postsurgical changes are redemonstrated status post partial right nephrectomy. Bilateral renal cysts are redemonstrated. These include a small exophytic hyperdense cyst laterally in the left kidney measuring up to 1.3 cm. Along the anterior superior aspect of the left kidney, there is an exophytic mass lesion containing internal macroscopic fat measuring up to 3.9 x 2.9 x 2.7 cm which appears stable in size compared to the prior studies. 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 There is no hydronephrosis. 2 small nonobstructing stones are demonstrated in the left kidney, measuring up to 0.6 cm within the inferior pole. The opacified renal collecting systems demonstrate no suspicious filling defects. Mild nonspecific perinephric stranding is redemonstrated bilaterally. The visualized ureters are nondistended. Other solid organs: There is a small focal hypodensity redemonstrated within the anterior right hepatic lobe which is too small to characterize but likely represents a cyst. The gallbladder is surgically absent. Biliary system is non-dilated. Pancreas enhances normally. No peripancreatic fat stranding or fluid collections. No pancreatic duct dilatation. The spleen is normal in size. No adrenal nodules. The right adrenal gland is irregular in appearance likely reflecting a partial adrenalectomy. Findings are similar to the prior studies. Peritoneum and bowel: Visualized bowel loops are normal in wall thickness and caliber. No free fluid or air. Nodes and vessels: No retroperitoneal or mesenteric adenopathy by size criteria. Aorta and inferior vena cava are normal in caliber. Bones: No suspicious bony lesions. No vertebral body compression fractures. Miscellaneous: No ventral hernias. IMPRESSION: 1. No evidence of new recurrent or metastatic disease in the abdomen. 2. Postsurgical changes consistent with partial right nephrectomy redemonstrated. 3. Bilateral renal cysts including a hyperdense exophytic left renal cyst. 4. Left nephrolithiasis without hydronephrosis. 5. Exophytic fat containing lesion in the left kidney appears stable in size and likely represents an angiomyolipoma. Dictated by: Tim Olvera M.D. on 12/04/2019 at 13:22 Approved by: Tim Olvera M.D. on 12/04/2019 at 13:33
--- NOTE | 2019-12-04 | DI.RAD.S_ITS ---
PROCEDURE: XR CHEST 2V INDICATIONS: History of renal cell carcinoma TECHNIQUE: 2 views of the chest were acquired. COMPARISON: [facility], CT, CT ABDOMEN WO/W CON, 12/06/2018, 9:45. [facility], CR, XR CHEST 2V, 12/20/2018, 12:55. [facility], CR, CHEST 1 VIEW, 12/23/2017, 3:01. FINDINGS: Surgical changes and devices: Surgical clips left chest, previously present. Lungs and pleura: Lungs are clear. No pleural effusions or pneumothorax. Mediastinum: Mediastinal contours are normal. Heart size is normal. Bones and chest wall: No suspicious bony abnormalities. Soft tissues appear unremarkable. IMPRESSION: Prior surgical clips stable over time, left chest anteriorly. No metastatic disease is found. Dictated by: Abelardo Kate M.D. on 12/04/2019 at 9:42 Approved by: Abelardo Kate M.D. on 12/04/2019 at 9:44
[2019-12-04 09:17] LABS: Alanine Aminotransferase 136 IU/L (<50); Albumin Globulin Ratio 1.6 (1.0-2.8); Alkaline Phosphatase 101 U/L (38-126); Aspartate Aminotransferase 103 IU/L (17-59); BUN Creatinine Ratio 16.4 (6-22); Bilirubin Total 0.9 mg/dL (0.2-1.3); Blood Urea Nitrogen 18 mg/dL (9-20); Calcium 8.7 mg/dL (8.4-10.2); Carbon Dioxide 33 mmol/L (22-32); Chloride 103 mmol/L (98-107); Estimated Glomerular Filt Rate > 60.0 mL/min (>60); Globulin 2.5 g/dL (1.7-4.1); Glucose 118 mg/dL (80-110); HEMOLYSIS < 15 (0-50); Potassium 4.3 mmol/L (3.4-5.1); Sodium 139 mmol/L (137-145); Total Protein 6.5 g/dL (6.3-8.2)
== END ==
PROVIDERS: PCP Family Medicine; Visit Provider Urology
DX: N28.1 Cyst of kidney, acquired (principal); N20.0 Calculus of kidney; N28.9 Disorder of kidney and ureter, unspecified; R91.8 Other nonspecific abnormal finding of lung field; Z85.528 Personal history of other malignant neoplasm of kidney; Z90.49 Acquired absence of other specified parts of digestive tract
CPT/HCPCS: 36415; 71046; 74170; 80053; Q9967

== ENCOUNTER → 2020-01-29 12:07 | Outpatient (CLI) | payer MEDICARE, BC, OTHER, SELFPAY ==
--- NOTE | 2020-01-29 12:10 | DI.RAD.S_ITS ---
PROCEDURE: XR SHOULDER LT MIN 2V INDICATIONS: left shoulder djd TECHNIQUE: 3 views of the shoulder were acquired. COMPARISON: None. FINDINGS: Bones: No fractures or dislocations but there is moderate degenerative osteoarthritic change at the a.c. joint and also the glenohumeral articulation.. No suspicious bony lesions. Visualized ribs appear intact. Soft tissues: No suspicious soft tissue calcifications. 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 No subluxation found. Dictated by: Abelardo Kate M.D. on 01/29/2020 at 14:06 Approved by: Abelardo Kate M.D. on 01/29/2020 at 14:06
== END ==
PROVIDERS: PCP Family Medicine; Referring Provider Family Medicine; Visit Provider Physical Medicine & Rehabilitation
DX: M75.42 Impingement syndrome of left shoulder (principal); M19.012 Primary osteoarthritis, left shoulder
CPT/HCPCS: 20611; 73030; 99213; J0702

== ENCOUNTER → 2020-04-03 09:42 | Outpatient (CLI) | payer MEDICARE, BC, OTHER, SELFPAY ==
--- NOTE | 2020-04-03 09:44 | DI.MRI.S_ITS ---
PROCEDURE: MR LUMBAR SPINE WO CON INDICATIONS: Back pain status post fusion TECHNIQUE: Noncontrast sagittal T1 spin echo and T2 fast echo, sagittal STIR, axial T1 and T2 fast spin echo through the lumbar spine. In cases with scoliosis, additional coronal T2 fast spin echo may be performed. COMPARISON: [facility], CR, XR LUMBAR SPINE MIN 4V, 09/18/2019, 16:15. [facility], MR, L-SPINE WITHOUT CONTRAST, 09/18/2017, 16:50. FINDINGS: Image quality: Excellent. Alignment and Curvature: Remote univentricular rate posterior lateral mehran and pedicle screw fixation at L5-S1. Unchanged mild grade 1 anterolisthesis of L5 on S1. Other vertebral bodies are normally aligned. Bone Marrow: Marrow is of normal overall signal. No acute vertebral body compression fractures. Spinal Cord: Conus medullaris terminates at the L1-L2 level. Visualized cord demonstrates normal signal and size. Paraspinous Soft Tissues: No paravertebral masses. T12-L1: Unchanged. Mild disc bulge. Mild facet hypertrophy. No canal stenosis. Mild to moderate bilateral foraminal stenosis. L1-L2: Unchanged. Mild disc bulge. Facet ligament hypertrophy. No significant canal stenosis. Mild bilateral foraminal stenosis. L2-L3: Unchanged. Mild disc bulge. Facet and ligament hypertrophy. Mild canal stenosis. Mild bilateral foraminal stenosis. L3-L4: Unchanged. Disc bulge. Remote right foramina may. Bilateral facet hypertrophy. Mild canal stenosis and left lateral recess stenosis. Moderate bilateral foraminal stenosis with flattening deformity on the exiting bilateral L3 nerve roots. L4-L5: Unchanged. Mild disc bulge. Prominent bilateral facet arthropathy. Mild canal stenosis. Moderate right and mild to moderate left foraminal narrowing with mild flattening deformity on the bilateral exiting L4 nerve roots. L5-S1: Unchanged. Right posterior laminectomy. No canal stenosis. Moderate right foraminal narrowing with mild flattening deformity on the exiting right L5 nerve root. Mild left foraminal narrowing. IMPRESSION: 1. Stable findings. 2. Multilevel postsurgical change. 3. Multilevel facet arthropathy. 4. Stable mild multilevel canal stenosis. Stable multilevel foraminal narrowing. Dictated by: Pankaj Ho M.D. on 04/03/2020 at 10:29 Approved by: Pankaj Ho M.D. on 04/03/2020 at 11:33
== END ==
PROVIDERS: PCP Family Medicine; Referring Provider Physical Medicine & Rehabilitation; Visit Provider Physical Medicine & Rehabilitation
DX: M54.9 Dorsalgia, unspecified (principal); M47.817 Spondylosis without myelopathy or radiculopathy, lumbosacral region; M47.816 Spondylosis without myelopathy or radiculopathy, lumbar region; M46.96 Unspecified inflammatory spondylopathy, lumbar region; M48.061 Spinal stenosis, lumbar region without neurogenic claudication; M48.07 Spinal stenosis, lumbosacral region; Z98.1 Arthrodesis status
CPT/HCPCS: 72148

== ENCOUNTER → 2020-05-11 13:09 | Outpatient (CLI) | payer MEDICARE, BC, OTHER, SELFPAY ==
[2020-05-12 08:52] LABS: COVID19 Sendout Not Detected (Not Detect)
== END ==
PROVIDERS: PCP Family Medicine; Visit Provider Physician Assistant
DX: Z01.812 Encounter for preprocedural laboratory examination (principal)
CPT/HCPCS: 87635

== ENCOUNTER 2020-05-14 10:27 | Outpatient (CLI) | payer MEDICARE, BC, OTHER, SELFPAY ==
[2020-05-14 10:41] VITALS: BP 120/69; PULSE 69; RESP 18; TEMP 36; O2SAT 99
--- NOTE | 2020-05-14 11:24 | DI.RAD.S_ITS ---
PROCEDURE: XR KNEE RT 3V INDICATIONS: knee djd TECHNIQUE: 3 views of the knee were acquired. COMPARISON: [facility], CR, XR KNEE RT 3V, 06/25/2018, 12:26. FINDINGS: Bones: No fractures or dislocations. No suspicious bony lesions. Chronic calcification seen in superior to the patella which is unchanged since 2018, possibly dystrophic calcification versus loose body. Scattered degenerative subchondral sclerosis and spurring. Soft tissues: Small joint effusion. No suspicious soft tissue calcifications. Scattered vascular calcifications. IMPRESSION: Mild degenerative joint disease, grossly unchanged Suprapatellar calcification as above Small joint effusion. If the patient's pain or other symptoms persist, consider further evaluation with MRI Dictated by: Joao Butler M.D. on 05/14/2020 at 13:34 Approved by: Joao Butler M.D. on 05/14/2020 at 13:36
--- NOTE | 2020-05-14 11:24 | DI.RAD.S_ITS ---
PROCEDURE: XR KNEE LT 3V INDICATIONS: KNEE PAIN TECHNIQUE: 3 views of the knee were acquired. COMPARISON: [facility], CR, XR KNEE RT 3V, 06/25/2018, 12:26. FINDINGS: Bones: No fractures or dislocations. No suspicious bony lesions. Scattered degenerative subchondral sclerosis and spurring. Mild narrowing of the medial joint space. Soft tissues: No joint effusion. No suspicious soft tissue calcifications. Scattered surgical clips. Scattered vascular calcifications IMPRESSION: Mild degenerative joint disease. No interval change Dictated by: Joao Butler M.D. on 05/14/2020 at 13:21 Approved by: Joao Butler M.D. on 05/14/2020 at 13:28
--- NOTE | 2020-05-14 11:49 | PC.NURSE ---
Pt arrived for proc today. After talking with Dr Whitfield, a mutual decision was reached that the procedure would not move forward as schd. Knee xrays were order and will be reviewed together at pts regularly schd appt in May. IV was removed and pt discharged per MD orders
== END 2020-05-14 11:43 | disposition home or self-care (01) ==
PROVIDERS: PCP Family Medicine; Referring Provider Physical Medicine & Rehabilitation; Visit Provider Physical Medicine & Rehabilitation
DX: M25.561 Pain in right knee (principal); M17.0 Bilateral primary osteoarthritis of knee; M25.861 Other specified joint disorders, right knee; M25.461 Effusion, right knee; M47.9 Spondylosis, unspecified; M47.816 Spondylosis without myelopathy or radiculopathy, lumbar region; M51.36 Other intervertebral disc degeneration, lumbar region
CPT/HCPCS: 73562; J2250; J3010

== ENCOUNTER → 2020-08-01 14:10 | Outpatient (CLI) | payer MEDICARE, BC, OTHER, SELFPAY ==
[2020-08-04 15:45] LABS: COVID19 Sendout Not Detected (Not Detect)
== END ==
PROVIDERS: PCP Family Medicine; Visit Provider Physician Assistant
DX: Z11.59 Encounter for screening for other viral diseases (principal)
CPT/HCPCS: 87635

== ENCOUNTER 2020-08-04 10:51 | Outpatient (CLI) | payer MEDICARE, BC, OTHER, SELFPAY ==
[2020-08-04] VITALS (7 sets, daily range): BP systolic 106–159; BP diastolic 62–75; PULSE 56–65; RESP 12–24; TEMP 36.1; O2SAT 92–100
--- NOTE | 2020-08-04 10:53 | DI.RAD.S_ITS ---
PROCEDURE: PAIN L/S MED/LAT N RFA INDICATIONS: SPONDYLOSIS COMPARISON: [facility], , PAIN L/S MED/LAT N RFA, 09/03/2019, 12:10. FINDINGS: Fluoroscopic spot filming was performed to verify placement of spinal needles at the L3, L4, L5 level(s), as labeled on the films. Appropriate location(s) of the needle tip(s) was confirmed by injection of iodinated contrast. Dictated by: Joao Butler M.D. on 08/04/2020 at 15:01 Approved by: Joao Butler M.D. on 08/04/2020 at 15:01
[2020-08-04 11:34] LABS: COVID19 -Nasal RAPID Negative (Negative)
[2020-08-04] MEDS: MIDAZOLAM 5 MG/5 ML VIAL IV (12:00)
[2020-08-04] MEDS: fentaNYL 100 MCG/2 ML INJ 50 MCG IV (12:00)
[2020-08-04] MEDS: BUPIVACAINE 0.5% (PF) VIAL 5 ML INJ (12:06)
[2020-08-04] MEDS: LIDOCAINE 1% 20 ML 10 ML INJ (12:06)
--- NOTE | 2020-08-04 12:31 | P.PCN_ITS ---
Date/Time/Diagnoses Date of procedure: 08/04/20 Time of procedure: 12:31 Pre-procedure diagnosis: 1. RECALCITRANT FACET ARTHROPATHY Post-procedure diagnosis: same Procedure Notes Procedure: 1. BILATERAL L3, L4 AND L5 MEDIAL BRANCH RADIOFREQUENCY NEUROTOMY Indications: Ulices is referred by for treatment of facet arthropathy. Physician: Asher Whitfield Total Fluoroscopy time (seconds): 8 Total sedation minutes: 23 Complications: none Procedure in detail & Post-procedure care: DESCRIPTION OF PROCEDURE Bilateral L3, L4 and L5 medial branch radiofrequency neurotomy The patient is well known to this clinic having undergone previous facet injections with good but temporary relief. The patient has experienced appropriate, concordant relief with previous facet and median branch blocks but the patient's pain has been recalcitrant to further conservative measures. Therefore, based upon the patient's relief and persistent symptoms, the patient is considered an appropriate candidate for facet rhizotomy. All of the patient's questions regarding the risks versus benefits of the procedure, including, but not limited to, bleeding, infection, temporary as well as lasting nerve injury, paralysis, stroke, and , as well treatment alternatives were answered to satisfaction. After obtaining informed consent, denial of pertinent drug allergies, as well as being made aware of the potential risks of bleeding, infection, spinal cord trauma, paralysis, temporary and permanent nerve damage, seizure, stroke, and possible , the patient was brought to the fluoroscopy suite and positioned prone on the fluoroscopy table. The lumbar region was prepped with Betadine and covered with a fenestrated drape in the usual sterile fashion. Appropriate monitors applied including pulse oxim eter, pulse, and blood pressure for regular monitoring throughout the procedure. After review of previous anaesthesic history and IV conscious sedation the patient was deemed safe to proceed with today's procedure with IV conscious sedation as ASA class II designation. Safety time-out was performed to confirm patient ID, procedure to be performed and site of procedure. IV sedation was accomplished with a combination of 2mg of Versed and 50mcg of Fentanyl administered by the RN after DO order, titrated to patient comfort during the course of the procedure while the patient remained responsive to all verbal commands. After local infiltration using 1% lidocaine, under fluoroscopic guidance, a 10- cm RF insulated needle with a 10-mm active tip was positioned parallel to the junction of the right the superior articulating process where the L5 medial branch resides. Needle placement was confirmed with motor stimulation of .5v on the right which produced local stimulation without radicular component. The stimulation was then increased to 2v with, once again, only local multifidus stimulation without radicular component. The needle was then removed and the identical procedure was performed along the length of the right L4 medial branch with motor stimulation at .7v on the right. The identical procedure was once again performed along the length of the right L3 and medial branch with motor stimulation of .5v on the right. The medial branches were then anesthetised with 0.5% marcaine. This was then followed by two discreet lesions performed at 80 degrees Celsius for 90 seconds each. The identical procedures were repeated on the left. The patient tolerated the procedure well without signs or symptoms of complications prior to transfer to the recovery area continued monitoring without incident. The patient was then transferred to the recovery area where they were observed for an appropriate period of time after the injection. The patient reported a VAS score of 7 prior to the procedure and a post-procedure VAS of 0. POST OP INSTRUCTIONS The patient was provided a Pain Log to continue to record the patient's response to the target-specific procedure prior to the patient's follow-up visit with the referring physician. Additionally, specific post-injection care instructions and a contact number to our office were provided if concerns arise regarding possible complications associated with the procedure are suspected.
== END 2020-08-04 12:55 | disposition home or self-care (01) ==
LOC: RAD 10:52
PROVIDERS: PCP Family Medicine; Referring Provider Family Medicine; Visit Provider Physical Medicine & Rehabilitation
DX: M47.816 Spondylosis without myelopathy or radiculopathy, lumbar region (principal); Z11.59 Encounter for screening for other viral diseases
CPT/HCPCS: 64635; 64636; 87635; 99152; 99153; J2250; J3010

== ENCOUNTER → 2020-10-27 10:30 | Outpatient (CLI) | payer MEDICARE, BC, OTHER, SELFPAY ==
[2020-10-27 11:22] LABS: COVID19 -Nasal RAPID Negative (Negative)
== END ==
PROVIDERS: PCP Family Medicine; Visit Provider Physical Medicine & Rehabilitation
DX: Z01.812 Encounter for preprocedural laboratory examination (principal); Z11.59 Encounter for screening for other viral diseases
CPT/HCPCS: 87635; C9803

== ENCOUNTER 2020-10-29 10:10 | Outpatient (CLI) | payer MEDICARE, BC, OTHER, SELFPAY ==
[2020-10-29] VITALS (8 sets, daily range): BP systolic 127–153; BP diastolic 65–85; PULSE 59–68; RESP 16–19; TEMP 36; O2SAT 96–100
--- NOTE | 2020-10-29 10:11 | DI.RAD.S_ITS ---
PROCEDURE: PAIN SI JOINT INJECTION INDICATIONS: SACROCOCCYGEAL DISORDER COMPARISON: None. FINDINGS: Fluoroscopic spot filming was performed to verify placement of spinal needles at the inferior right sacroiliac level(s), as labeled on the films. Appropriate location(s) of the needle tip(s) was confirmed by injection of iodinated contrast. IMPRESSION: Successful needle tip localization for inferior right sacroiliac joint steroid injection. Dictated by: Abelardo Kate M.D. on 10/29/2020 at 12:17 Approved by: Abelardo Kate M.D. on 10/29/2020 at 12:17
[2020-10-29] MEDS: MIDAZOLAM 5 MG/5 ML VIAL IV (11:45)
[2020-10-29] MEDS: BUPIVACAINE 0.5% (PF) VIAL 2 ML INJ (11:49)
[2020-10-29] MEDS: IOPAMIDOL 15 ML VIAL 3 ML INJ (11:49)
[2020-10-29] MEDS: BETAMETHASONE 30 MG/5 ML MDV 12 MG INJ (11:49)
--- NOTE | 2020-10-29 11:56 | PM.PROC.IR.1 ---
Date/Time/Diagnoses Date of procedure: 10/29/20 Time of procedure: 11:56 Pre-procedure diagnosis: Sacroiliac joint pain/DJD Post-procedure diagnosis: same Procedure Notes Procedure: Fluoroscopically guided contrast controlled right sacroiliac joint injection Indications: Guerrero is referred by Dr. Goldberg for treatment of right sacroiliac joint DJD Physician: Asher Whitfield Total Fluoroscopy time (seconds): 8 Total sedation minutes: 8 Complications: none Procedure in detail & Post-procedure care: DESCRIPTION OF PROCEDURE Fluoroscopically guided, contrast controlled right sacroiliac joint injection Following review of allergies and review of potential side effects and complications, including, but not necessarily limited to, infection, allergic reaction, local tissue breakdown, temporary as well as permanent nerve injury, paralysis, stroke and possible , the patient indicated that they understood and agreed to proceed. An informed consent was signed by the patient, witnessed by a nurse, and placed in the patient's chart. Additionally, other treatment options including modalities, medications, and physical therapy were reviewed with the patient. After review of previous anaesthesic history and IV conscious sedation the patient was deemed safe to proceed with today?s procedure with IV conscious sedation as ASA class II designation. Safety time-out was performed to confirm patient ID, procedure to be performed and site of procedure. IV sedation was accomplished with a combination of 2mg of Versed was administered by the RN after DO order, titrated to patient comfort during the course of the procedure while the patient remained responsive to all verbal commands In the prone position following sterile prep and drape of the pelvic region, the hyper lucency on in the inferior aspect of the sacroiliac joint was identified fluoroscopically the skin was anesthetized be a 25 gauge 1 eventual with approximately 2 cc of 1% lidocaine solution. At this point, a 22 gauge 3 in spinal needle was atraumatically introduced and advanced under fluoroscopic guidance into the inferior aspect of the right sacroiliac joint. Following negative aspiration, approximately 0.3cc of [id number]-300 was injected confirming intra-articular placement without vascular uptake. Radiographic data, including multiple fluoroscopic views of the pelvis, reveals a spinal needle in the sacroiliac joint hyper lucent zone. Subsequent view show flow contrast tear superiorly and inferiorly within the joint capsule without vascular intrathecal uptake. At this point a total of 1 of 0.5% Marcaine was combined with 1cc of 6 mg of betamethasone was injected without incident. The procedure tolerated the procedure well without signs or symptoms of complications prior to transfer to the recovery area continued monitoring without incident. The patient was then transferred to the recovery area with a bur observed for an appropriate time after the injection. The patient reverted a vas score of 7 prior to the procedure and post-procedure vas of 1. POSTOP INSTRUCTIONS The patient was provided with a pain like to continue to record the patient's response to the target specific procedure prior to the patient's follow-up visit with the referring physician. Additionally, specific post injection care instructions and a contact number to our office were provided if concerns arise regarding the possible complications associated with procedure are suspected.
--- NOTE | 2020-10-29 12:22 | PC.NURSE ---
ambulated well independently to baseline prior to discharge. tolerated cookies and coffee. no pain upon discharge.
== END 2020-10-29 12:17 | disposition home or self-care (01) ==
LOC: RAD 10:11
PROVIDERS: PCP Family Medicine; Referring Provider Physical Medicine & Rehabilitation; Visit Provider Physical Medicine & Rehabilitation
DX: M53.3 Sacrococcygeal disorders, not elsewhere classified (principal); M46.1 Sacroiliitis, not elsewhere classified
CPT/HCPCS: 27096; 99152; J0702; J2250; J3010

== ENCOUNTER 2020-11-01 18:29 | Emergency (ER) | payer MEDICARE, BC, OTHER, SELFPAY ==
[2020-11-01] VITALS (18 sets, daily range): BP systolic 110–159; BP diastolic 55–68; PULSE 52–71; RESP 13–24; TEMP 36.7; O2SAT 93–98; BMI 33.9
--- NOTE | 2020-11-01 18:37 | ED.CHESTPAIN ---
HPI - Chest Pain General Chief Complaint: Chest Pain Stated Complaint: Chest pain Time Seen by Provider: 11/01/20 18:36 Source: patient and EMS Mode of arrival: EMS Limitations: no limitations History of Present Illness HPI narrative: Patient is a 85-year-old male with history of 6 way bypass presenting today with chest pain. He said he woke up early to go duck hunting of a use an ATV to get around so not a lot of walking but he did start noticing some sharp pain on the left side radiating through to his back. He made at home for lunch but really was not hungry he continue to watch football and rest but the pain progressively got worse. He took 2 nitro at home which seemed to help and EMS was eventually called. They gave him aspirin and nitro prior to arrival he is currently chest pain-free. He denies any cough or shortness of breath. He is followed by [facility] cardiology Dr. Jazzmine DAVIDSON complaint: chest pain Onset (ago): hour(s) Duration: progressively worsening and now resolved Pain location: left chest Severity: moderate Quality: sharp Pain radiation: back Relieving factors: nitroglycerin Exacerbating factors: nothing Related Data Home Medications Medication Instructions Recorded Confirmed ASCORBIC ACID (VITAMIN C) 1,000 mg PO Q DAY #0 06/28/11 11/01/20 [place]/Calcium/Copper/Mangane 1 tab PO Q DAY #0 06/28/11 11/01/20 (#CALCIUM CITRATE +) CA PANTOTHENATE/FOLIC ACID/VIT 1 tab PO QDAY #0 06/28/11 11/01/20 (MULTIVITAMIN) GLUC MEYER/CHONDRO MEYER A/VIT C/MN 1 cap PO Q DAY #0 06/28/11 11/01/20 (Glucosamine 1,500 Complex Cp) aspirin 81 mg PO QDAY #0 06/28/11 11/01/20 cetirizine 10 mg PO QDAY #0 12/23/17 11/01/20 acetaminophen 325 mg capsule 650 mg PO Q6H PRN 04/12/18 11/01/20 finasteride 5 mg tablet 5 mg PO DAILY 04/12/18 11/01/20 fluticasone propionate 50 2 spray NASAL PRN PRN 04/12/18 11/01/20 mcg/actuation nasal spray,suspension folic acid 1 mg tablet 1 mg PO DAILY 04/12/18 11/01/20 lisinopril 10 mg tablet 10 mg PO DAILY 04/12/18 11/01/20 nitroglycerin 0.4 mg sublingual 0.4 mg SL Q5M PRN 04/12/18 11/01/20 tablet omeprazole 20 mg capsule,delayed 20 mg PO BID 04/12/18 11/01/20 release allopurinol 300 mg tablet 300 mg PO DAILY tab 06/12/19 11/01/20 atorvastatin 80 mg tablet 80 mg PO DAILY tab 03/31/20 11/01/20 metoprolol succinate 25 mg 12.5 mg PO BID tab 03/31/20 11/01/20 tablet,extended release 24 hr tamsulosin 0.4 mg capsule 0.4 mg PO DAILY 03/31/20 11/01/20 dabigatran etexilate 150 mg capsule 150 mg PO BID cap 06/03/20 11/01/20 Previous Rx's Medication Instructions Recorded disabled parking See Rx Instructions .ROUTE 04/12/18 .COMPLEX #1 tramadol 50 mg tablet 50 mg PO BID PRN #60 tab 06/29/20 Allergies Allergy/AdvReac Type Severity Reaction Status Date / Time chlorpromazine Allergy Severe HALLUCINATI Verified 11/01/20 18:57 [From Thorazine] ONS lorazepam [From Ativan] Allergy Severe HALLUCINATI Verified 11/01/20 18:57 ONS Review of Systems Review of Systems Narrative: GENERAL: Denies chills, fatigue, malaise, fever, sweats, travel HEENT: Denies sinus pain, ear pain, sore throat, difficulty swallowing, neck pain RESPIRATORY: Denies dyspnea, cough, wheezing, hemoptysis, sputum. CARDIOVASCULAR: See HPI GASTROINTESTINAL: Denies nausea, vomiting, abdominal pain, diarrhea, constipation, melena. : Denies dysuria, frequency, incontinence, hematuria, urinary retention, flank pain. MUSCULOSKELETAL: Denies weakness, joint pain, or bony pain SKIN: No rash, no erythema, no pruritus NEUROLOGIC: Denies weakness, dizziness, headache, numbness, change in speech, confusion PSYCHIATRIC: No concerning psychosocial issues. 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 HEENT: Head atraumatic,EOMI, pupils reactive, face symmetric, moist mucous membranes CARDIOVASCULAR: Regular rate and rhythm without murmurs, rubs or gallops. RESPIRATORY: Breath sounds equal bilaterally, no wheezes rales or rhonchi. ABDOMEN: Soft, nontender. Normoactive bowel sounds all 4 quadrants. No guarding or rebound. Multiple scars on abdomen incisional hernia noted EXTREMITIES: Normal range of motion, no clubbing or edema. Neurovascularly intact NEUROLOGICAL: Alert and oriented x4.Normal gait and speech. Cranial nerves II through XII grossly intact. SKIN: Warm, dry, no laceration, no petechiae, no rashes or lesions. Course Orders Ordered: ED Orders 11/01/20 18:36 XR chest 1V Stat EKG-12 Lead Stat 11/01/20 18:40 Complete Blood Count AUTO DIFF Stat Comprehensive Metabolic Panel Stat Lipase Stat NT-proBNP (BNP-Adult 18+) Stat Partial Thromboplastin Time Stat Prothrombin Time INR Stat Troponin & CK Cardiac Panel Stat 11/01/20 20:24 Troponin I Stat 11/01/20 21:20 COVID19 Stat Vital Signs Vital signs: Vital Signs - 8 hr 11/01/20 18:33 11/01/20 18:35 11/01/20 19:00 Temperature 98.1 F Pulse Rate 61 62 55 L Respiratory Rate 18 13 Blood Pressure 159/68 H Pulse Oximetry 98 98 96 11/01/20 19:01 11/01/20 19:30 11/01/20 20:00 Temperature Pulse Rate 55 L 54 L 58 L Respiratory Rate 13 18 16 Blood Pressure 117/59 L 110/57 L 127/61 Pulse Oximetry 95 93 95 11/01/20 20:30 11/01/20 20:31 11/01/20 21:00 Temperature Pulse Rate 53 L 52 L 52 L Respiratory Rate 20 19 19 Blood Pressure 122/55 L Pulse Oximetry 97 97 95 11/01/20 21:01 11/01/20 21:30 11/01/20 21:31 Temperature Pulse Rate 53 L 71 60 Respiratory Rate 20 24 22 Blood Pressure 121/58 L 156/68 H Pulse Oximetry 95 11/01/20 22:00 11/01/20 22:01 Temperature Pulse Rate 55 L 53 L Respiratory Rate 14 17 Blood Pressure 139/63 Pulse Oximetry MDM - Chest Pain Lab Data Attestation: I reviewed the patient's lab results. Result diagrams: 11/01/20 18:40 11/01/20 18:40 Labs: Lab Results 11/01/20 11/01/20 11/01/20 Range/Units 18:40 18:40 18:40 WBC 8.1 (4.5-11.0) X10^3/uL RBC 4.59 (4.5-5.9) X10^6/uL Hgb 14.9 (13.5-17.5) g/dL Hct 44.1 (41-53) % MCV 96.0 (80-100) fL MCH 32.4 (26-34) PG MCHC 33.8 (30-36) % RDW 13.5 (11.6-14.8) % Plt Count 203 (150-400) X10^3/uL Neut % (Auto) 55.7 (50-75) % Lymph % (Auto) 31.3 (25-40) % Terry % (Auto) 11.5 (3-14) % Eos % (Auto) 0.8 L (2-4) % Baso % (Auto) 0.7 (0-2) % Neut # (Auto) 4500 (6216-6915) /uL Lymph # (Auto) 2500 (9840-2622) /uL Terry # (Auto) 900 (0-900) /uL Eos # (Auto) 100 (0-450) /uL Baso # (Auto) 100 (0-100) /uL PT 12.6 (10.1-12.7) SECONDS INR 1.1 (0.9-1.3) APTT 35 (26.4-36.2) SECONDS Sodium 137 (137-145) mmol/L Potassium 4.4 (3.4-5.1) mmol/L Chloride 103 (98-107) mmol/L Carbon Dioxide 29 (22-32) mmol/L BUN 26 H (9-20) mg/dL Creatinine 1.21 (0.66-1.25) mg/dL Estimated GFR 56.9 L (>60) mL/min BUN/Creatinine Ratio 21.5 (6-22) Glucose 115 H (80-110) mg/dL Calcium 8.7 (8.4-10.2) mg/dL Total Bilirubin 0.9 (0.2-1.3) mg/dL AST 42 (17-59) IU/L ALT 29 (<50) IU/L Alkaline Phosphatase 76 (38-126) U/L Total Creatine Kinase 75 (55-170) U/L CK-MB (CK-2) TNP CK-MB (CK-2) Rel Index TNP Troponin I 0.020 (0.01-0.034) ng/mL NT-Pro-B Natriuret Pep 123 (<450) pg/mL Total Protein 6.9 (6.3-8.2) g/dL Albumin 4.0 (3.5-5.0) g/dL Globulin 2.9 (1.7-4.1) g/dL Albumin/Globulin Ratio 1.4 (1.0-2.8) Lipase 103 (23-300) U/L COVID-19 PCR (Negative) 11/01/20 11/01/20 Range/Units 20:24 21:20 WBC (4.5-11.0) X10^3/uL RBC (4.5-5.9) X10^6/uL Hgb (13.5-17.5) g/dL Hct (41-53) % MCV (80-100) fL MCH (26-34) PG MCHC (30-36) % RDW (11.6-14.8) % Plt Count (150-400) X10^3/uL Neut % (Auto) (50-75) % Lymph % (Auto) (25-40) % Terry % (Auto) (3-14) % Eos % (Auto) (2-4) % Baso % (Auto) (0-2) % Neut # (Auto) (8417-7144) /uL Lymph # (Auto) (9156-2268) /uL Terry # (Auto) (0-900) /uL Eos # (Auto) (0-450) /uL Baso # (Auto) (0-100) /uL PT (10.1-12.7) SECONDS INR (0.9-1.3) APTT (26.4-36.2) SECONDS Sodium (137-145) mmol/L Potassium (3.4-5.1) mmol/L Chloride (98-107) mmol/L Carbon Dioxide (22-32) mmol/L BUN (9-20) mg/dL Creatinine (0.66-1.25) mg/dL Estimated GFR (>60) mL/min BUN/Creatinine Ratio (6-22) Glucose (80-110) mg/dL Calcium (8.4-10.2) mg/dL Total Bilirubin (0.2-1.3) mg/dL AST (17-59) IU/L ALT (<50) IU/L Alkaline Phosphatase (38-126) U/L Total Creatine Kinase (55-170) U/L CK-MB (CK-2) CK-MB (CK-2) Rel Index Troponin I 0.061 H (0.01-0.034) ng/mL NT-Pro-B Natriuret Pep (<450) pg/mL Total Protein (6.3-8.2) g/dL Albumin (3.5-5.0) g/dL Globulin (1.7-4.1) g/dL Albumin/Globulin Ratio (1.0-2.8) Lipase (23-300) U/L COVID-19 PCR Negative (Negative) Imaging Data Chest x-ray: Radiologist's Impression: PROCEDURE: XR CHEST 1V INDICATIONS: chest pain TECHNIQUE: One view of the chest was acquired. COMPARISON: [facility], CR, XR CHEST 2V, 12/20/2018, 12:55. [facility], CR, XR CHEST 2V, 12/04/2019, 9:05. FINDINGS: Surgical changes and devices: Multiple surgical clips in the mediastinum. Lungs and pleura: Left basilar opacity may be infiltrate, atelectasis or scarring. No pleural effusions or pneumothorax. Mediastinum: Mediastinal contours appear normal. Heart size is normal. Bones and chest wall: No suspicious bony lesions. Overlying soft tissues appear unremarkable. IMPRESSION: Left basilar infiltrate, atelectasis or scarring Dictated by: Concepcion Cheek M.D. on 11/01/2020 at 19:10 ECG Data Attestation: I personally reviewed and interpreted this ECG as follows: Prior ECG tracings: available for review Interpretation: EKG 1. Normal sinus rhythm right a 62 p.r. interval [address] changes similar to previous EKG in 2018 EKG 2. Sinus rhythm rate 53 a T-wave inversion noted in lead 3 also present on previous EKG MDM Narrative Medical decision making narrative: Patient has remained chest pain-free in the ED. I do not appreciate any EKG changes. Repeat troponin at the 2 hour chanel has risen into the indeterminate range. Based on patient's history of coronary artery disease and previously under controlled angina this is very atypical for him. 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 22:40-Dr. Hopkins hospitalist updated patient's symptoms and test results accepts for transfer Discharge Plan Departure Patient Disposition: General Acute Hospital Clinical Impression: Chest pain Qualifiers: Chest pain type: unspecified Qualified Code(s): R07.9 - Chest pain, unspecified Prescriptions: No Action ASCORBIC ACID (VITAMIN C) 1,000 mg PO Q DAY Qty: 0 RF: 0 aspirin 81 MG tablet,delayed release (DR/EC) 81 mg PO QDAY Qty: 0 RF: 0 [place]/Calcium/Copper/[place] (#CALCIUM CITRATE +) 1 tab PO Q DAY Qty: 0 RF: 0 CA PANTOTHENATE/FOLIC ACID/VIT (MULTIVITAMIN) 1 tab PO QDAY Qty: 0 RF: 0 GLUC MEYER/CHONDRO MEYER A/VIT C/MN (Glucosamine 1,500 Complex Cp) 1 cap PO Q DAY Qty: 0 RF: 0 cetirizine 10 MG tablet 10 mg PO QDAY Qty: 0 RF: 0 tramadol 50 mg tablet 50 mg PO BID PRN (Reason: pain) Qty: 60 RF: 1 metoprolol succinate 25 mg tablet extended release 24 hr 12.5 mg PO BID RF: 0 atorvastatin 80 mg tablet 80 mg PO DAILY RF: 0 tamsulosin 0.4 mg capsule 0.4 mg PO DAILY RF: 0 dabigatran etexilate 150 mg capsule 150 mg PO BID RF: 0 lisinopril 10 mg tablet 10 mg PO DAILY RF: 0 finasteride [Proscar] 5 mg tablet 5 mg PO DAILY RF: 0 omeprazole 20 mg capsule,delayed release(DR/EC) 20 mg PO BID RF: 0 fluticasone propionate 50 mcg/actuation spray,suspension 2 spray NASAL PRN PRN (Reason: Allergy Symptoms) RF: 0 nitroglycerin [Nitrostat] 0.4 mg tablet, sublingual 0.4 mg SL Q5M PRN (Reason: Chest Pain) RF: 0 acetaminophen [Tylenol] 325 mg capsule 650 mg PO Q6H PRN (Reason: Pain, Mild) RF: 0 folic acid 1 mg tablet 1 mg PO DAILY RF: [address] See Rx Instructions .ROUTE .COMPLEX Qty: 1 RF: 0 allopurinol 300 mg tablet 300 mg PO DAILY RF: 0 Referrals: Holly Goldberg MD [Primary Care Provider] -
[2020-11-01 18:45] LABS: Add Manual Diff / Slide Review NO; Basophils Absolute Auto 100 /uL (0-100); Basophils Percent Auto 0.7 % (0-2); Eosinophils Absolute Auto 100 /uL (0-450); Eosinophils Percent Auto 0.8 % (2-4); Hematocrit 44.1 % (41-53); Hemoglobin 14.9 g/dL (13.5-17.5); Lymphocytes Absolute Auto 2500 /uL (1100-4500); Lymphocytes Percent Auto 31.3 % (25-40); Mean Corpuscular HGB Conc 33.8 % (30-36); Mean Corpuscular Hemoglobin 32.4 PG (26-34); Monocytes Absolute Auto 900 /uL (0-900); Monocytes Percent Auto 11.5 % (3-14); Neutrophils Absolute Auto 4500 /uL (1500-7000); Neutrophils Percent Auto 55.7 % (50-75); Platelet Count 203 X10^3/uL (150-400); Red Blood Cell Count 4.59 X10^6/uL (4.5-5.9); Red Cell Distribution Width 13.5 % (11.6-14.8); White Blood Cell Count 8.1 X10^3/uL (4.5-11.0)
[2020-11-01 19:06] LABS: INR 1.1 (0.9-1.3); Prothrombin Time 12.6 SECONDS (10.1-12.7)
[2020-11-01 19:08] LABS: PTT Partial Thromboplastin Tim 35 SECONDS (26.4-36.2)
[2020-11-01 19:10] LABS: Alanine Aminotransferase 29 IU/L (<50); Albumin Globulin Ratio 1.4 (1.0-2.8); Alkaline Phosphatase 76 U/L (38-126); Aspartate Aminotransferase 42 IU/L (17-59); BUN Creatinine Ratio 21.5 (6-22); Bilirubin Total 0.9 mg/dL (0.2-1.3); Blood Urea Nitrogen 26 mg/dL (9-20); Calcium 8.7 mg/dL (8.4-10.2); Carbon Dioxide 29 mmol/L (22-32); Chloride 103 mmol/L (98-107); Creatine Kinase 75 U/L (55-170); Estimated Glomerular Filt Rate 56.9 mL/min (>60); Globulin 2.9 g/dL (1.7-4.1); Glucose 115 mg/dL (80-110); Lipase 103 U/L (23-300); Sodium 137 mmol/L (137-145); Total Protein 6.9 g/dL (6.3-8.2)
[2020-11-01 19:11] LABS: HEMOLYSIS 119 (0-50); Potassium 4.4 mmol/L (3.4-5.1)
[2020-11-01 19:22] LABS: NT-proBNP (BNP-Adult 18+) 123 pg/mL (<450)
[2020-11-01 21:01] LABS: Troponin I 0.061 ng/mL (0.01-0.034)
[2020-11-01 21:48] LABS: COVID19 -Nasal RAPID Negative (Negative)
[2020-11-02] VITALS: PULSE 56; RESP 18
[2020-11-02 00:01] VITALS: BP 121/60
== END 2020-11-02 00:15 | disposition short-term general hospital (02) ==
PROVIDERS: Emergency Provider Emergency Medicine; PCP Family Medicine
DX: R07.9 Chest pain, unspecified (principal); I25.10 Atherosclerotic heart disease of native coronary artery without angina pectoris
CPT/HCPCS: 36415; 71045; 80053; 82550; 83690; 83880; 84484; 85025; 85610; 85730; 87635; 93005; 93010; 99284

== ENCOUNTER → 2020-11-10 14:05 | Outpatient (CLI) | payer MEDICARE, BC, OTHER, SELFPAY ==
--- NOTE | 2020-11-10 | DI.CT.S_ITS ---
PROCEDURE: CT ABDOMEN WO/W CON INDICATIONS: cyst of kidney, acquired TECHNIQUE: Optional 5 mm thick noncontrast images acquired from the diaphragm to the iliac crests. After the administration of intravenous contrast, 5 mm thick images again acquired from the diaphragm to the iliac crests in the arterial and urographic phases. 5 mm thick coronal and sagittal reformats were then acquired. For radiation dose reduction, the following was used: automated exposure control, adjustment of mA and/or kV according to patient size. COMPARISON: [facility], CT, CT ABDOMEN WO/W CON, 12/04/2019, 9:48. [facility], CT, CT ABDOMEN WO/W CON, 12/06/2018, 9:45. FINDINGS: Image quality: Excellent. Lung bases: Lung bases are clear except for a small stable appearing ovoid radiodensity within the posterolateral right lower lobe, and also a smaller nodule at the deep costophrenic sulcus posteriorly on the left seen on series 6, image 2 and image 19. These were previously present at the same dimensions in November of 2018. Heart size is normal. Genitourinary: Postsurgical clips are present at the medial right renal margins, and there is an exophytic ovoid water density cyst at the lower tip of the right kidney. At the left kidney there is a middle 3rd hyperdense 11 mm presumed cyst and an exophytic fat containing rounded exophytic mass at the anterior border of the left renal cortex. At the same axial level a posterior exophytic cyst measuring up to 3.5 cm is present, stable over time. A calculus within the collecting system at the lower 3rd left kidney is stable over time also. No obstructive influence is present. Other solid organs: Liver is normal in size and enhancement. Gallbladder has been resected . Biliary system is non dilated. Pancreas enhances normally. Spleen is normal in size and enhancement. No adrenal nodules. Peritoneum and bowel: Unenhanced bowel loops are normal in wall thickness and caliber. No free fluid or air. Nodes and vessels: No retroperitoneal or mesenteric adenopathy by size criteria. Aorta and inferior vena cava are normal in caliber. Bones: No suspicious bony lesions. No vertebral body compression fractures. Miscellaneous: No ventral hernias. IMPRESSION: Stable postsurgical changes of partial right nephrectomy. Bilateral water density renal cortical cysts are stable over time. 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 Finally, a lower 3rd left renal collecting system moderate-sized calculus is stable over time and again does not show obstructive influence. Previously present small posterior lung base nodules are present, measuring approximately 8 mm on the right and 3 mm on the left. No change from November 2018, no specific follow-up recommended. Dictated by: Abelardo Kate M.D. on 11/10/2020 at 16:35 Approved by: Abelardo Kate M.D. on 11/10/2020 at 16:42
== END ==
PROVIDERS: PCP Family Medicine; Referring Provider Urology; Visit Provider Urology
DX: N28.1 Cyst of kidney, acquired (principal); N20.0 Calculus of kidney; N28.89 Other specified disorders of kidney and ureter; R91.8 Other nonspecific abnormal finding of lung field; Z90.5 Acquired absence of kidney
CPT/HCPCS: 74170; Q9967

== ENCOUNTER → 2021-01-18 09:31 | Outpatient (CLI) | payer MEDICARE, BC, OTHER, SELFPAY ==
--- NOTE | 2021-01-18 09:33 | DI.RAD.S_ITS ---
PROCEDURE: XR LUMBAR SPINE MIN 4V INDICATIONS: LOW BACK PAIN TECHNIQUE: 4 views of the lumbar spine were acquired, including bilateral oblique views. COMPARISON: Merged With [facility], CT, CT ABDOMEN WO/W CON, 12/06/2018, 9:45. Merged With [facility], CT, CT ABDOMEN WO/W CON, 11/10/2020, 14:10. Merged With [facility], CR, XR LUMBAR SPINE MIN 4V, 09/18/2019, 16:15. FINDINGS: Bones: 5 nonrib-bearing vertebrae are present. Right L5-S1 pedicle screw fixation. Hardware is intact. Mild anterolisthesis of L5 on S1 similar to the prior exam. Moderate degenerative change. No vertebral body compression fractures. No suspicious bony lesions. Right hip total arthroplasty. Moderate degenerative change of the left hip. Soft tissues: Overlying bowel gas pattern is normal. No suspicious soft tissue calcifications. Cholecystectomy clips. Oblique images: No pars defects. IMPRESSION: No compression fracture. Right L5-S1 pedicle screw fixation is stable. Dictated by: Bolivar García M.D. on 01/18/2021 at 9:49 Approved by: Bolivar García M.D. on 01/18/2021 at 9:53
== END ==
PROVIDERS: PCP Family Medicine; Referring Provider Physical Medicine & Rehabilitation; Visit Provider Physical Medicine & Rehabilitation
DX: M51.36 Other intervertebral disc degeneration, lumbar region (principal); M54.5 Low back pain; M53.3 Sacrococcygeal disorders, not elsewhere classified; M47.816 Spondylosis without myelopathy or radiculopathy, lumbar region; M46.96 Unspecified inflammatory spondylopathy, lumbar region; I25.10 Atherosclerotic heart disease of native coronary artery without angina pectoris; Z96.641 Presence of right artificial hip joint; Z85.528 Personal history of other malignant neoplasm of kidney; Z86.711 Personal history of pulmonary embolism
CPT/HCPCS: 72110; 99214

== ENCOUNTER → 2021-02-01 15:05 | Outpatient (CLI) | payer MEDICARE, BC, OTHER, SELFPAY ==
[2021-02-01 16:16] LABS: COVID19 -Nasal RAPID Negative (Negative)
== END ==
PROVIDERS: PCP Family Medicine; Visit Provider Physical Medicine & Rehabilitation
DX: Z20.822 Contact with and (suspected) exposure to COVID-19 (principal)
CPT/HCPCS: 87635; C9803

== ENCOUNTER 2021-02-02 14:06 | Outpatient (CLI) | payer MEDICARE, BC, OTHER, SELFPAY ==
[2021-02-02] VITALS (8 sets, daily range): BP systolic 107–145; BP diastolic 62–81; PULSE 62–69; RESP 13–20; TEMP 36.8; O2SAT 97–100
--- NOTE | 2021-02-02 14:09 | DI.RAD.S_ITS ---
PROCEDURE: PAIN L/S FACET INJ/BLK 1ST DEEPALI COMPARISON: [facility], MR, MR LUMBAR SPINE WO CON, 04/03/2020, 10:01. [facility], CR, XR LUMBAR SPINE MIN 4V, 01/18/2021, 9:33. INDICATIONS: SPONDYLOSIS FINDINGS: 6 intraoperative fluoroscopy images demonstrate needle placement at L3-L4 and L4-L5 bilaterally. IMPRESSION: Fluoroscopy for pain management. Dictated by: Concepcion Cheek M.D. on 02/02/2021 at 15:47 Approved by: Concepcion Cheek M.D. on 02/02/2021 at 15:48
[2021-02-02] MEDS: MIDAZOLAM 5 MG/5 ML VIAL IV (15:15)
[2021-02-02] MEDS: fentaNYL 100 MCG/2 ML INJ 50 MCG IV (15:17)
[2021-02-02] MEDS: LIDOCAINE 1% 20 ML 10 ML INJ (15:20)
[2021-02-02] MEDS: IOPAMIDOL 15 ML VIAL 3 ML INJ (15:20)
[2021-02-02] MEDS: BUPIVACAINE 0.5% (PF) VIAL 5 ML INJ (15:20)
[2021-02-02] MEDS: BETAMETHASONE 30 MG/5 ML MDV 12 MG INJ (15:20)
--- NOTE | 2021-02-02 15:37 | P.PCN_ITS ---
Date/Time/Diagnoses Date of procedure: 02/02/21 Time of procedure: 15:37 Pre-procedure diagnosis: 1. FACET ARTHROPATHY 2. AXIAL LBP 3. MULTILEVEL DDD Post-procedure diagnosis: same Procedure Notes Procedure: 1. FLUORSCOPICALLY GUIDED CONTRAST CONTROLLED FACET JOINT INJECTIONS BILATERAL L3/4, L4/5 Indications: Ulices is referred by Dr. Goldberg for treatment of Axial LBP Physician: Asher Whitfield Total Fluoroscopy time (seconds): 13 Total sedation minutes: 17 Complications: none Procedure in detail & Post-procedure care: FINDINGS Multilevel Facet Arthropathy with Clinically significant axial LBP DESCRIPTION OF PROCEDURE Fluoroscopically guided, contrast-controlled bilateral L3/4, L4/5 facet joint injections. Following review of allergy and review of potential side effects and complications, including, but not necessarily limited to, infection, allergic reaction, local tissue breakdown, stroke, temporary or permanent nerve injury, paralysis, and possible , the patient indicated that the patient understood and agreed to proceed. An informed consent document was signed by the patient, witnessed by a nurse, and placed in the patient's chart. Additionally, other treatment options including medications, modalities, and physical therapy were reviewed with the patient. After review of previous anaesthesic history and IV conscious sedation the patient was deemed safe to proceed with today's procedure with IV conscious sedation as ASA class II designation. Safety time-out was performed to confirm patient ID, procedure to be performed and site of procedure. IV sedation was accomplished with a combination of 2mg of Versed and 50mcg of Fentanyl was administered by the RN after DO order, titrated to patient comfort during the course of the procedure while the patient remained responsive to all verbal commands. In the prone position, following sterile prep and drape of the lumbar region, the posterior aspect of the L3/4, L4/5 facet joints were identified fluoroscopically. The skin was anesthetized via a 25-gauge 1.5-inch needle with 1% lidocaine solution into the corresponding facet joints. At this point, a 22- gauge 3.5-inch spinal needle was atraumatically introduced and advanced under fluoroscopic guidance into the corresponding facet joints. Following negative aspiration, injections of approximately 0.2cc of Isovue 200 confirmed inter articular placement without vascular uptake. The identical procedure was then performed at the L3/4, L4/5 facet joints on the left. Radiological data, including multiple fluoroscopic views of the lumbosacral spine, reveal a spinal needle at the L3/4, L4/5 facet joints bilaterally. Subsequent views show flow of contrast material both superiorly and inferiorly within the joint space without vascular or intrathecal uptake. At this point, a total of 0.5cc including a mixture of 0.25cc Marcaine and 0.25cc betamethasone was injected without complication into each of the corresponding facet joints. The patient tolerated the procedure well without signs or symptoms of complications prior to transfer to the recovery area continued monitoring without incident. The patient was then transferred to the recovery area where they were observed for an appropriate period of time after the injection. The patient reported a VAS score of 7 prior to the procedure and a post-procedure VAS of 0. POST OP INSTRUCTIONS The patient was provided a Pain Log to continue to record their response to the target-specific procedure prior to follow-up visit with their referring physician. Additionally, specific post-injection care instructions and a contact number to our office were provided if concerns arise regarding possible complications associated with the procedure are suspected.
== END 2021-02-02 15:50 | disposition home or self-care (01) ==
LOC: RAD 14:09
PROVIDERS: PCP Family Medicine; Referring Provider Physical Medicine & Rehabilitation; Visit Provider Physical Medicine & Rehabilitation
DX: M47.816 Spondylosis without myelopathy or radiculopathy, lumbar region (principal); M54.5 Low back pain; M51.36 Other intervertebral disc degeneration, lumbar region
CPT/HCPCS: 64493; 64494; 99152; J0702; J2250; J3010

== ENCOUNTER → 2021-04-20 07:06 | Outpatient (CLI) | payer MEDICARE, BC, OTHER, SELFPAY ==
[2021-04-20 12:05] LABS: COVID19 -Nasal RAPID Negative (Negative)
== END ==
PROVIDERS: PCP Family Medicine; Visit Provider Physical Medicine & Rehabilitation
DX: Z20.822 Contact with and (suspected) exposure to COVID-19 (principal)
CPT/HCPCS: 87635; C9803

== ENCOUNTER 2021-04-22 10:51 | Outpatient (CLI) | payer MEDICARE, BC, OTHER, SELFPAY ==
[2021-04-22] VITALS (12 sets, daily range): BP systolic 121–155; BP diastolic 56–83; PULSE 55–63; RESP 13–21; TEMP 36.6; O2SAT 94–99
--- NOTE | 2021-04-22 10:52 | DI.RAD.S_ITS ---
PROCEDURE: PAIN L/S MED/LAT N RFA BILAT INDICATIONS: SPONDYLOSIS COMPARISON: [facility], XA, PAIN L/S MED/LAT N RFA BILAT, 04/24/2018, 8:53. [facility], XA, PAIN L/S FACET INJ/BLK 1ST DEEPALI, 02/02/2021, 15:19. FINDINGS: Fluoroscopic spot filming was performed to verify placement of spinal needles at the L3, L4, and L5 levels on the right and on the left, as labeled on the films. IMPRESSION: Intraprocedural examination within normal limits. Dictated by: Alberto Reina M.D. on 04/22/2021 at 12:02 Approved by: Alberto Reina M.D. on 04/22/2021 at 12:03
[2021-04-22] MEDS: fentaNYL 100 MCG/2 ML INJ 50 MCG IV (11:31)
[2021-04-22] MEDS: LIDOCAINE 1% 20 ML 10 ML INJ (11:36)
[2021-04-22] MEDS: BUPIVACAINE 0.5% (PF) VIAL 5 ML INJ (11:36)
[2021-04-22] MEDS: MIDAZOLAM 5 MG/5 ML VIAL IV (11:37)
--- NOTE | 2021-04-22 12:17 | P.PCN_ITS ---
Date/Time/Diagnoses Date of procedure: 04/22/21 Time of procedure: 12:17 Pre-procedure diagnosis: 1. RECALCITRANT FACET ARTHROPATHY Post-procedure diagnosis: same Procedure Notes Procedure: 1. BILATERAL L3, L4 AND L5 MEDIAL BRANCH RADIOFREQUENCY NEUROTOMY Indications: Enzo is referred by Dr. Goldberg for treatment of facet arthropathy. Physician: Asher Whitfield Total Fluoroscopy time (seconds): 35 Total sedation minutes: 43 Complications: none Procedure in detail & Post-procedure care: DESCRIPTION OF PROCEDURE Bilateral L3, L4 and L5 medial branch radiofrequency neurotomy The patient is well known to this clinic having undergone previous facet injections with good but temporary relief. The patient has experienced appropriate, concordant relief with previous facet and median branch blocks but the patient's pain has been recalcitrant to further conservative measures. Therefore, based upon the patient's relief and persistent symptoms, the patient is considered an appropriate candidate for facet rhizotomy. All of the patient's questions regarding the risks versus benefits of the procedure, including, but not limited to, bleeding, infection, temporary as well as lasting nerve injury, paralysis, stroke, and , as well treatment alternatives were answered to satisfaction. After obtaining informed consent, denial of pertinent drug allergies, as well as being made aware of the potential risks of bleeding, infection, spinal cord trauma, paralysis, temporary and permanent nerve damage, seizure, stroke, and possible , the patient was brought to the fluoroscopy suite and positioned prone on the fluoroscopy table. The lumbar region was prepped with Betadine and covered with a fenestrated drape in the usual sterile fashion. Appropriate monitors applied including pulse o ximeter, pulse, and blood pressure for regular monitoring throughout the procedure. After review of previous anaesthesic history and IV conscious sedation the patient was deemed safe to proceed with today's procedure with IV conscious sedation as ASA class II designation. Safety time-out was performed to confirm patient ID, procedure to be performed and site of procedure. IV sedation was accomplished with a combination of 4mg of Versed and 50mcg of Fentanyl administered by the RN after DO order, titrated to patient comfort during the course of the procedure while the patient remained responsive to all verbal commands. After local infiltration using 1% lidocaine, under fluoroscopic guidance, a 10- cm RF insulated needle with a 10-mm active tip was positioned parallel to the junction of the right the superior articulating process where the L5 medial branch resides. Needle placement was confirmed with motor stimulation of .5v on the right which produced local stimulation without radicular component. The stimulation was then increased to 2v with, once again, only local multifidus stimulation without radicular component. The needle was then removed and the identical procedure was performed along the length of the right L4 medial branch with motor stimulation at .7v on the right. The identical procedure was once again performed along the length of the right L3 and medial branch with motor stimulation of .5v on the right. The medial branches were then anesthetised with 0.5% marcaine. This was then followed by two discreet lesions performed at 80 degrees Celsius for 90 seconds each. The identical procedures were repeated on the left. The patient tolerated the procedure well without signs or symptoms of complications prior to transfer to the recovery area continued monitoring without incident. The patient was then transferred to the recovery area where they were observed for an appropriate period of time after the injection. The patient reported a VAS score of 9 prior to the procedure and a post-procedure VAS of 0. POST OP INSTRUCTIONS The patient was provided a Pain Log to continue to record the patient's response to the target-specific procedure prior to the patient's follow-up visit with the referring physician. Additionally, specific post-injection care instructions and a contact number to our office were provided if concerns arise regarding possible complications associated with the procedure are suspected.
== END 2021-04-22 12:28 | disposition home or self-care (01) ==
LOC: RAD 10:52
PROVIDERS: PCP Family Medicine; Referring Provider Family Medicine; Visit Provider Physical Medicine & Rehabilitation
DX: M47.816 Spondylosis without myelopathy or radiculopathy, lumbar region (principal); M47.817 Spondylosis without myelopathy or radiculopathy, lumbosacral region
CPT/HCPCS: 64635; 64636; 99152; 99153; J2250; J3010

== ENCOUNTER 2021-04-25 13:20 | Emergency (ER) | payer MEDICARE, BC, OTHER, SELFPAY ==
--- NOTE | 2021-04-25 13:28 | DI.CT.S_ITS ---
PROCEDURE: CT CERVICAL SPINE WO CON INDICATIONS: trauma TECHNIQUE: Noncontrast 3 mm thick sections acquired from the skull base to the T4 level. Sagittal and coronal reformats were then constructed. For radiation dose reduction, the following was used: automated exposure control, adjustment of mA and/or kV according to patient size. COMPARISON: [facility], CT, CT HEAD/BRAIN WO CON, 04/25/2021, 13:38. [facility], CT, CT CHEST ABD PEL WO CON, 04/25/2021, 13:38. FINDINGS: Image quality: Excellent. Bones: No fractures or dislocations. Visualized superior ribs are intact. Degenerative changes are seen, with at least partially bridging anterior osteophytes C2 throughT1. The disc heights are relatively well preserved. Sternotomy wires are partially seen. Soft tissues: Prevertebral soft tissues are normal in thickness. No paravertebral hematomas. No apical pneumothoraces. IMPRESSION: No acute fractures are detected. Given the appearance of the cervical spine, please consider diffuse idiopathic skeletal hyperostosis (DISH). Dictated by: Alberto Reina M.D. on 04/25/2021 at 13:10 Approved by: Alberto Reina M.D. on 04/25/2021 at 13:11
--- NOTE | 2021-04-25 13:28 | DI.CT.S_ITS ---
PROCEDURE: CT HEAD/BRAIN WO CON INDICATIONS: trauma TECHNIQUE: Noncontrast 4.5 mm thick angled axial sections acquired from the foramen magnum to the vertex, with coronal and sagittal reformats. For radiation dose reduction, the following was used: automated exposure control, adjustment of mA and/or kV according to patient size. COMPARISON: [facility], CT, CT CERVICAL SPINE WO CON, 04/25/2021, 13:38. [facility], CT, CT CHEST ABD PEL WO CON, 04/25/2021, 13:38. [facility], CT, HEAD WITHOUT CONTRAST, 10/26/2016, 12:36. FINDINGS: Image quality: Mild streak artifact can be seen through the skull base. CSF spaces: Basal cisterns are patent. No extra-axial fluid collections. The ventricles are symmetric in size and shape. Brain: No intracranial bleeds or masses. There is cerebral volume loss for age, with resultant ventricular and sulcal prominence. There are periventricular and deep white matter chronic small vessel ischemic changes. There is intracranial internal carotid artery atherosclerosis. Skull and face: Calvarium and visualized facial bones appear intact, without suspicious lesions. Sinuses: Visualized sinuses and mastoids are clear. IMPRESSION: No acute intracranial hemorrhage is seen. No acute intracranial process is seen. Note is made of age-appropriate brain parenchymal volume loss and chronic small vessel ischemic changes. Dictated by: Alberto Reina M.D. on 04/25/2021 at 13:06 Approved by: Alberto Reina M.D. on 04/25/2021 at 13:09
[2021-04-25 13:29] VITALS: BP 147/68; PULSE 74; RESP 20; TEMP 36.9; O2SAT 100
--- NOTE | 2021-04-25 13:36 | ED_ITS ---
HPI - Fall General Chief Complaint: Trauma Stated Complaint: fell off a ladder to get on a horse with helmet on Time Seen by Provider: 04/25/21 13:31 Source: patient and family Mode of arrival: Wheelchair History of Present Illness HPI Narrative: Patient here with family. Brought in for falling 2 times 30 minutes apart trying to mount 2 different courses. First fall off of mounding block trying to get on the horse. Second fall on a ladder trying to mount on another course. No loss of consciousness. No nausea vomiting. No limb com plaints. Complains of pain to the posterior scalp as well as right lower ribs. Patient is on blood thinner for history of pulmonary embolism 5 years ago. No confusion. No headache. No complaints of of neck pain. No numbness tingling or weakness. No trouble breathing. Also complains of diffuse back pain. No pain below the pelvis. Complains posterior right rib pain. Has history of chronic back pain. MD complaint: fall Related Data Home Medications Medication Instructions Recorded Confirmed ASCORBIC ACID (VITAMIN C) 1,000 mg PO Q DAY #0 06/28/11 03/31/21 Empire/Calcium/Copper/Mangane 1 tab PO Q DAY #0 06/28/11 03/31/21 (#CALCIUM CITRATE +) CA PANTOTHENATE/FOLIC ACID/VIT 1 tab PO QDAY #0 06/28/11 03/31/21 (MULTIVITAMIN) GLUC MEYER/CHONDRO MEYER A/VIT C/MN 1 cap PO Q DAY #0 06/28/11 03/31/21 (Glucosamine 1,500 Complex Cp) aspirin 81 mg PO QDAY #0 06/28/11 03/31/21 cetirizine 10 mg PO QDAY #0 12/23/17 03/31/21 acetaminophen 325 mg capsule 650 mg PO Q6H PRN 04/12/18 03/31/21 finasteride 5 mg tablet 5 mg PO DAILY 04/12/18 03/31/21 fluticasone propionate 50 2 spray NASAL PRN PRN 04/12/18 03/31/21 mcg/actuation nasal spray,suspension folic acid 1 mg tablet 1 mg PO DAILY 04/12/18 03/31/21 lisinopril 10 mg tablet 10 mg PO DAILY 04/12/18 03/31/21 nitroglycerin 0.4 mg sublingual 0.4 mg SL Q5M PRN 04/12/18 03/31/21 tablet omeprazole 20 mg capsule,delayed 20 mg PO BID 04/12/18 03/31/21 release allopurinol 300 mg tablet 300 mg PO DAILY tab 06/12/19 03/31/21 atorvastatin 80 mg tablet 80 mg PO DAILY tab 03/31/20 03/31/21 metoprolol succinate 25 mg 12.5 mg PO BID tab 03/31/20 03/31/21 tablet,extended release 24 hr tamsulosin 0.4 mg capsule 0.4 mg PO DAILY 03/31/20 03/31/21 dabigatran etexilate 150 mg capsule 150 mg PO BID cap 06/03/20 03/31/21 Previous Rx's Medication Instructions Recorded disabled parking See Rx Instructions .ROUTE 04/12/18 .COMPLEX #1 tramadol 50 mg tablet 50 mg PO BID PRN #60 tab 04/08/21 Allergies Allergy/AdvReac Type Severity Reaction Status Date / Time chlorpromazine Allergy Severe HALLUCINATI Verified 03/31/21 15:05 [From Thorazine] ONS lorazepam [From Ativan] Allergy Severe HALLUCINATI Verified 03/31/21 15:05 ONS Review of Systems Review of Systems Narrative: GENERAL: Denies chills, fatigue, malaise, fever, sweats. HEENT: Denies sinus pain, ear pain, sore throat RESPIRATORY: Denies dyspnea, cough CARDIOVASCULAR: Denies chest pain, palpitations GASTROINTESTINAL: Denies nausea, vomiting, abdominal pain : Denies dysuria, frequency, hematuria MUSCULOSKELETAL: Complaint muscle or bony pain SKIN: Denies rash, skin lesions NEUROLOGIC: Denies weakness, numbness ROS Unobtainable: All systems reviewed & are unremarkable except as noted in HPI and below Patient History Medical History Cancer DDD (degenerative disc disease), lumbar Degenerative joint disease Depression Facet arthropathy, lumbar Fracture Heart disease History of kidney cancer History of pulmonary embolism Hx of pulmonary embolus Hx of renal cell cancer Hypertension Lumbar facet arthropathy Obesity (BMI 30-39.9) Obstructive sleep apnea Sacral dysfunction Small bowel obstruction Spinal stenosis at L4-L5 level Spondylosis Surgical History History of laminectomy History of partial nephrectomy S/P CABG x 6 Status post lumbar spinal fusion Status post total hip replacement, right Family History Other Heart disease Social History Smoking Status: Never smoker Smoking Status: Never smoker alcohol intake frequency: holidays/special occasions only Substance Use Type: does not use Exam Narrative Exam Narrative: GENERAL: in no distress, not toxic not dyspneic HEAD: Normocephalic. Ecchymosis of the left occiput scalp. No crepitus step- off. Nontender. EYES: Pupils equal round No scleral icterus. No injection no discharge ENT: Mucous membranes moist. NECK: Trachea midline. Patient is C-collar. CARDIOVASCULAR: Regular rate and rhythm without murmurs RESPIRATORY: Clear to auscultation. Breath sounds equal bilaterally. No wheezes, rales, or rhonchi. GASTROINTESTINAL: Abdomen soft, non-tender EXTREMITIES: No gross deformities. Nontender bilateral shoulders elbows wrists pelvis hips knees BACK: Mild right posterior lower rib pain no crepitus or step-off. No bruising seen other than old buttock bruising that patient and state hard old NEURO: AOx4. SKIN: Warm and dry PSYCH: Not anxious, is cooperative Initial Vital Signs Initial Vital Signs: Vital Signs Temperature 98.5 F 04/25/21 13:29 Pulse Rate 74 04/25/21 13:29 Respiratory Rate 20 04/25/21 13:29 Blood Pressure 147/68 H 04/25/21 13:29 Pulse Oximetry 100 04/25/21 13:29 Course Course Course Narrative: No new issues during course of stay. C-collar cleared, CT C-spine no acute fracture. Orders Ordered: ED Orders 04/25/21 13:20 Complete Blood Count AUTO DIFF Stat Comprehensive Metabolic Panel Stat Lipase Stat Partial Thromboplastin Time Stat Prothrombin Time INR Stat 04/25/21 13:28 CT cervical spine wo con Stat CT head/brain wo con Stat 04/25/21 13:34 CT chest abd pel wo con Stat Reevaluation(s) Reevaluation #1: Reviewed results with patient and . Agree with treatment plan follow-up. He does have pain medication at home if needed. At this time he does not want anything. Pain controlled. Time: 14:42 Consultations Consultation #1: Spoke with Dr. cook, radiologist clinical operations manager. He did review CT scan imaging of the ribs. No fracture Time: 14:42 Vital Signs Vital signs: Vital Signs - 8 hr 04/25/21 13:29 Temperature 98.5 F Pulse Rate 74 Respiratory Rate 20 Blood Pressure 147/68 H Pulse Oximetry 100 MDM - Fall Differential Diagnosis Differential diagnosis: Likely other (Vertebral fracture/rib fracture/contusion/scalp injury/head injury) Lab Data Attestation: I reviewed the patient's lab results. Result diagrams: 04/25/21 13:20 04/25/21 13:20 Labs: Lab Results 04/25/21 04/25/21 04/25/21 Range/Units 13:20 13:20 13:20 WBC 5.8 (4.5-11.0) X10^3/uL RBC 4.59 (4.5-5.9) X10^6/uL Hgb 15.0 (13.5-17.5) g/dL Hct 44.3 (41-53) % MCV 96.6 (80-100) fL MCH 32.7 (26-34) PG MCHC 33.9 (30-36) % RDW 14.2 (11.6-14.8) % Plt Count 161 (150-400) X10^3/uL Neut % (Auto) 64.3 (50-75) % Lymph % (Auto) 25.0 (25-40) % Rooks % (Auto) 9.5 (3-14) % Eos % (Auto) 0.8 L (2-4) % Baso % (Auto) 0.4 (0-2) % Neut # (Auto) 3700 (7409-4135) /uL Lymph # (Auto) 1400 (0772-7469) /uL Rooks # (Auto) 500 (0-900) /uL Eos # (Auto) 0 (0-450) /uL Baso # (Auto) 0 (0-100) /uL PT 14.5 H (10.1-12.7) SECONDS INR 1.3 (0.9-1.3) APTT 47 H D (26.4-36.2) SECONDS Sodium 137 (137-145) mmol/L Potassium 4.6 (3.4-5.1) mmol/L Chloride 104 (98-107) mmol/L Carbon Dioxide 28 (22-32) mmol/L BUN 22 H (9-20) mg/dL Creatinine 1.18 (0.66-1.25) mg/dL Estimated GFR 58.5 L (>60) mL/min BUN/Creatinine Ratio 18.6 (6-22) Glucose 111 H (80-110) mg/dL Calcium 9.2 (8.4-10.2) mg/dL Total Bilirubin 0.8 (0.2-1.3) mg/dL AST 30 (17-59) IU/L ALT 26 (<50) IU/L Alkaline Phosphatase 99 (38-126) U/L Total Protein 6.5 (6.3-8.2) g/dL Albumin 4.0 (3.5-5.0) g/dL Globulin 2.5 (1.7-4.1) g/dL Albumin/Globulin Ratio 1.6 (1.0-2.8) Lipase 54 (23-300) U/L Imaging Data CT scan - head: Radiologist's Impression: [address] [id number] Scan ReportSigned Patient: [place] LMR#: [id number]: 4Acct:[id number]/Sex: 85 / MDate of Service: 04/25/21Loc: EDAccession Number: [id number] Procedure: CT head/brain wo con Ordering Provider: Ricky Coker MD PROCEDURE: CT HEAD/BRAIN WO CON INDICATIONS: trauma TECHNIQUE: Noncontrast 4.5 mm thick angled axial sections acquired from the foramen magnum to the vertex, with coronal and sagittal reformats. For radiation dose reduction, the following was used: automated exposure control, adjustment of mA and/or kV according to patient size. COMPARISON: [facility], CT, CT CERVICAL SPINE WO CON, 04/25/2021, 13:38. [facility], CT, CT CHEST ABD PEL WO CON, 04/25/2021, 13:38. [facility], CT, HEAD WITHOUT CONTRAST, 10/26/2016, 12:36. FINDINGS: Image quality: Mild streak artifact can be seen through the skull base. CSF spaces: Basal cisterns are patent. No extra-axial fluid collections. The ventricles are symmetric in size and shape. Brain: No intracranial bleeds or masses. There is cerebral volume loss for age, with resultant ventricular and sulcal prominence. There are periventricular and deep white matter chronic small vessel ischemic changes. There is intracranial internal carotid artery atherosclerosis. Skull and face: Calvarium and visualized facial bones appear intact, without suspicious lesions. Sinuses: Visualized sinuses and mastoids are clear. IMPRESSION: No acute intracranial hemorrhage is seen. No acute intracranial process is seen. Note is made of age-appropriate brain parenchymal volume loss and chronic small vessel ischemic changes. Dictated by: Alberto Reina M.D. on 04/25/2021 at 13:06 Approved by: Alberto Reina M.D. on 04/25/2021 at 13:09 CT - cervical spine: Radiologist's Impression: [address] [id number] Scan ReportSigned Patient: [place] LMR#: [id number]: [id number]:[id number]/Sex: 85 / MDate of Service: 04/25/21Loc: EDAccession Number: [id number] Procedure: CT cervical spine wo con Ordering Provider: Ricky Coker MD PROCEDURE: CT CERVICAL SPINE WO CON INDICATIONS: trauma TECHNIQUE: Noncontrast 3 mm thick sections acquired from the skull base to the T4 level. Sagittal and coronal reformats were then constructed. For radiation dose reduction, the following was used: automated exposure control, adjustment of mA and/or kV according to patient size. COMPARISON: [facility], CT, CT HEAD/BRAIN WO CON, 04/25/2021, 13:38. [facility], CT, CT CHEST ABD PEL WO CON, 04/25/2021, 13:38. FINDINGS: Image quality: Excellent. Bones: No fractures or dislocations. Visualized superior ribs are intact. Degenerative changes are seen, with at least partially bridging anterior osteop hytes C2 throughT1. The disc heights are relatively well preserved. Sternotomy wires are partially seen. Soft tissues: Prevertebral soft tissues are normal in thickness. No paravertebral hematomas. No apical pneumothoraces. IMPRESSION: No acute fractures are detected. Given the appearance of the cervical spine, please consider diffuse idiopathic skeletal hyperostosis (DISH). Dictated by: Alberto Reina M.D. on 04/25/2021 at 13:10 Approved by: Alberto Reina M.D. on 04/25/2021 at 13:11 CT chest abdomen pelvis: Radiologist's Impression: [place] [id number] [address] [place] [id number] Scan ReportSigned Patient: [place] LMR#: [id number]: [id number]:[id number]/Sex: 85 / MDate of Service: 04/25/21Loc: EDAccession Number: [id number] Procedure: CT chest abd pel wo con Ordering Provider: Ricky Coker MD PROCEDURE: CT CHEST ABD PEL WO CON INDICATIONS: fall TECHNIQUE: After the administration of oral contrast, 5 mm thick sections acquired from the lung apices to the symphysis pubis. 5 mm thick coronal and sagittal reformats acquired, with additional 7 mm coronal MIP reformats through the lungs. For radiation dose reduction, the following was used: automated exposure control, adjustment of mA and/or kV according to patient size. COMPARISON: [facility], CT, ANGIO CHEST ABDOMEN PELVIS, 12/23/2017, 3:56. [facility], CT, CT ABDOMEN WO/W CON, 12/06/2018, 9:45. [facility], CT, CT ABDOMEN WO/W CON, 12/04/2019, 9:48. [facility], CT, CT ABDOMEN WO/W CON, 11/10/2020, 14:10. [facility], CT, CT HEAD/BRAIN WO CON, 04/25/2021, 13:38. [facility], CT, CT CERVICAL SPINE WO CON, 04/25/2021, 13:38. FINDINGS: Image quality: There is artifact associated with the metallic hardware. CHEST: Lungs and pleura: Pulmonary nodules are seen, with the largest seen within the right lower lobe measuring 8 mm, as on series 7, image 245. This pulmonary nodule has increased in size over time. The other pulmonary nodules are similar over time. No pleural effusions or pneumothorax. Central and peripheral airways are patent are normal in caliber. Mediastinum: Post CABG changes are seen. Heart size is normal. No pericardial effusion. No mediastinal adenopathy by CT size criteria. Thoracic aorta and central pulmonary arteries are normal in size. Esophagus is normal in caliber. No hiatal hernia. Chest wall: No axillary or supraclavicular adenopathy by size criteria. Thyroid gland demonstrates no significant noncontrast abnormality. ABDOMEN: Solid organs: Liver is normal in size. Gallbladder has been removed. Pancreas is normal in contours. Spleen is normal in size. No adrenal nodules. Right partial nephrectomy change can be seen. There is a 1 mm nonobstructing stone seen on the left, as on series 6, image 84. A 6 mm nonobstructing left-sided kidney stone is seen, as on series 6, image 94. On the right, there is a likely vascular calcification seen, as on series 6, image 82. Water density cysts are seen on both sides. There is an exophytic hyperdense nodule on the left, measuring 50 Hounsfield units and 1.5 cm, which is attributed to a hyperdense cyst. There is also a fat containing mass along the anterior aspect measures 3.8 cm. Peritoneum and bowel: Small and large bowel loops are normal in caliber and wall thickness. No free fluid or air. There is a sigmoid colon anastomotic staple line seen, as on series 6 image 112. Nodes and vessels: No retroperitoneal or mesenteric adenopathy by size criteria. Aorta and inferior vena cava are normal in size. Atherosclerotic calcification is noted. Miscellaneous: No ventral hernias. PELVIS: Genitourinary: Bladder wall thickness is normal. Miscellaneous: No enlarged inguinal or pelvic lymph nodes are seen. There is a fat-containing left inguinal hernia seen. Bones: Right hip arthroplasty hardware is seen, with associated streak artifact. Lumbosacral postoperative change is seen. Grade 1 L5-S1 anterolisthesis is seen. Mild dextroconvex scoliotic curvature is seen. No suspicious bony lesions. No vertebral body compression fractures. IMPRESSION: No acute posttraumatic abnormality is seen. There is an 8 mm right lower lobe pulmonary nodule seen, which has increased in size over time. Please consider six-month follow-up noncontrast chest CT. Stable pulmonary nodules are seen elsewhere, for which no specific imaging follow-up is recommended. Stable likely hyperdense cyst along the lateral aspect of the left kidney, which is similar to prior studies. Incidental note is made of: CABG Cholecystectomy Stable benign-appearing fat containing mass along the anterior aspect of the left kidney Nonobstructing left-sided kidney stones. Right partial nephrectomy change. Sigmoid anastomotic staple line Dextroconvex scoliotic curvature Lumbosacral postoperative change Fat containing left inguinal hernia Dictated by: Alberto Reina M.D. on 04/25/2021 at 13:12 Approved by: Alberto Reina M.D. on 04/25/2021 at 13:21 MDM Narrative Medical decision making narrative: Appropriate for discharge home. Exam and imaging and laboratory studies reassuring. Patient and agree for discharge home. Not toxic. Pain controlled. Discharge Plan Departure Patient Disposition: Home Clinical Impression: Contusion of scalp Qualifiers: Encounter type: initial encounter Qualified Code(s): S00.03XA - Contusion of scalp, initial encounter Back contusion Qualifiers: Encounter type: initial encounter Laterality: unspecified laterality Qualified Code(s): S20.229A - Contusion of unspecified back wall of thorax, initial encounter Instructions: DI for Contusion, DI for Rib Contusion, DI for Trauma, DI for Closed Head Injury Activity Restrictions/Additional Instructions: Return if worsening questions concerns. See family doctor this week for recheck. May use cool or warm packs to sore areas as needed 20 minutes at a time for pain. May continue home pain medication. Prescriptions: No Action ASCORBIC ACID (VITAMIN C) 1,000 mg PO Q DAY Qty: 0 RF: 0 aspirin 81 MG tablet,delayed release (DR/EC) 81 mg PO QDAY Qty: 0 RF: 0 Empire/Calcium/Copper/Mangane (#CALCIUM CITRATE +) 1 tab PO Q DAY Qty: 0 RF: 0 CA PANTOTHENATE/FOLIC ACID/VIT (MULTIVITAMIN) 1 tab PO QDAY Qty: 0 RF: 0 GLUC MEYER/CHONDRO MEYER A/VIT C/MN (Glucosamine 1,500 Complex Cp) 1 cap PO Q DAY Qty: 0 RF: 0 cetirizine 10 MG tablet 10 mg PO QDAY Qty: 0 RF: 0 tramadol 50 mg tablet 50 mg PO BID PRN (Reason: pain) Qty: 60 RF: 1 metoprolol succinate 25 mg tablet extended release 24 hr 12.5 mg PO BID RF: 0 atorvastatin 80 mg tablet 80 mg PO DAILY RF: 0 tamsulosin 0.4 mg capsule 0.4 mg PO DAILY RF: 0 dabigatran etexilate 150 mg capsule 150 mg PO BID RF: 0 lisinopril 10 mg tablet 10 mg PO DAILY RF: 0 finasteride [Proscar] 5 mg tablet 5 mg PO DAILY RF: 0 omeprazole 20 mg capsule,delayed release(DR/EC) 20 mg PO BID RF: 0 fluticasone propionate 50 mcg/actuation spray,suspension 2 spray NASAL PRN PRN (Reason: Allergy Symptoms) RF: 0 nitroglycerin [Nitrostat] 0.4 mg tablet, sublingual 0.4 mg SL Q5M PRN (Reason: Chest Pain) RF: 0 acetaminophen [Tylenol] 325 mg capsule 650 mg PO Q6H PRN (Reason: Pain, Mild) RF: 0 folic acid 1 mg tablet 1 mg PO DAILY RF: 0 [address] See Rx Instructions .ROUTE .COMPLEX Qty: 1 RF: 0 allopurinol 300 mg tablet 300 mg PO DAILY RF: 0 Referrals: Holly Goldberg MD [Primary Care Provider] -
[2021-04-25 13:58] LABS: Add Manual Diff / Slide Review NO; Basophils Absolute Auto 0 /uL (0-100); Basophils Percent Auto 0.4 % (0-2); Eosinophils Absolute Auto 0 /uL (0-450); Eosinophils Percent Auto 0.8 % (2-4); Hematocrit 44.3 % (41-53); Lymphocytes Absolute Auto 1400 /uL (1100-4500); Mean Corpuscular HGB Conc 33.9 % (30-36); Mean Corpuscular Hemoglobin 32.7 PG (26-34); Mean Corpuscular Volume 96.6 fL (80-100); Monocytes Absolute Auto 500 /uL (0-900); Monocytes Percent Auto 9.5 % (3-14); Neutrophils Absolute Auto 3700 /uL (1500-7000); Neutrophils Percent Auto 64.3 % (50-75); Platelet Count 161 X10^3/uL (150-400); Red Blood Cell Count 4.59 X10^6/uL (4.5-5.9); Red Cell Distribution Width 14.2 % (11.6-14.8); White Blood Cell Count 5.8 X10^3/uL (4.5-11.0)
[2021-04-25 14:02] LABS: INR 1.3 (0.9-1.3); Prothrombin Time 14.5 SECONDS (10.1-12.7)
[2021-04-25 14:05] VITALS: BP 130/74; PULSE 57; O2SAT 98
[2021-04-25 14:05] LABS: PTT Partial Thromboplastin Tim 47 SECONDS (26.4-36.2)
[2021-04-25 14:07] LABS: Alanine Aminotransferase 26 IU/L (<50); Albumin Globulin Ratio 1.6 (1.0-2.8); Alkaline Phosphatase 99 U/L (38-126); Aspartate Aminotransferase 30 IU/L (17-59); BUN Creatinine Ratio 18.6 (6-22); Bilirubin Total 0.8 mg/dL (0.2-1.3); Blood Urea Nitrogen 22 mg/dL (9-20); Calcium 9.2 mg/dL (8.4-10.2); Carbon Dioxide 28 mmol/L (22-32); Chloride 104 mmol/L (98-107); Estimated Glomerular Filt Rate 58.5 mL/min (>60); Globulin 2.5 g/dL (1.7-4.1); Glucose 111 mg/dL (80-110); HEMOLYSIS < 15 (0-50); Lipase 54 U/L (23-300); Potassium 4.6 mmol/L (3.4-5.1); Sodium 137 mmol/L (137-145); Total Protein 6.5 g/dL (6.3-8.2)
--- NOTE | 2021-04-25 14:18 | PC.NURSE ---
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 pain to neck and back tenderness, but no spinal tenderness or deformity.
[2021-04-25 14:30] VITALS: PULSE 56; RESP 18; O2SAT 99
== END 2021-04-25 15:02 | disposition home or self-care (01) ==
PROVIDERS: Emergency Provider Emergency Medicine; PCP Family Medicine
DX: S00.03XA Contusion of scalp, initial encounter (principal); S20.229A Contusion of unspecified back wall of thorax, initial encounter; R07.81 Pleurodynia; W11.XXXA Fall on and from ladder, initial encounter
CPT/HCPCS: 36415; 70450; 71250; 72125; 74176; 80053; 83690; 85025; 85610; 85730; 99283; 99285

== ENCOUNTER → 2023-12-04 08:21 | Outpatient (CLI) | payer MEDICARE, BC, OTHER, SELFPAY ==
[2023-08-03 16:15] VITALS: BMI 33.9
--- NOTE | 2023-12-04 08:23 | DI.RAD.S_ITS ---
PROCEDURE: XR KNEE LT 3V INDICATIONS: left knee pain TECHNIQUE: 3 views of the knee were acquired. COMPARISON: [facility], CR, XR KNEE LT 3V, 10/03/2022, 17:51. FINDINGS: Bones: Normal mineralization. No fractures or malalignment. Mild to moderate tricompartment joint space loss with very small marginal spurs. There is prominent calcific tendinopathy at the distal quadriceps insertion. Questionable medial compartment chondrocalcinosis, very faint. Soft tissues: No joint effusion. No suspicious soft tissue calcifications. Surgical clips along the medial aspect of the leg. Moderate peripheral vascular calcification. IMPRESSION: 1. Mild to moderate tricompartment joint space loss without corresponding significant spurs. 2. Trace medial compartment chondrocalcinosis. Consider CPPD, hyperparathyroidism, hemochromatosis. 3. Moderate peripheral vascular calcification. Dictated by: Jillian Benitez M.D. on 12/04/2023 at 19:13 Approved by: Jillian Benitez M.D. on 12/04/2023 at 19:15
--- NOTE | 2023-12-04 08:23 | DI.RAD.S_ITS ---
PROCEDURE: XR KNEE RT 3V INDICATIONS: right knee pain TECHNIQUE: 3 views of the knee were acquired. COMPARISON: [facility], CR, XR KNEE LT 3V, 10/03/2022, 17:51. FINDINGS: Bones: No fractures or dislocations. Mild tricompartment joint space loss and very small spur formation, mainly lateral and patellofemoral. There is enthesopathy at the distal quadriceps insertion. No suspicious bony lesions. Soft tissues: No joint effusion. No suspicious soft tissue calcifications. Moderate peripheral vascular calcification. IMPRESSION: 1. Mild osteoarthritic changes in the right knee. Dictated by: Jillian Benitez M.D. on 12/04/2023 at 19:10 Approved by: Jillian Benitez M.D. on 12/04/2023 at 19:11
--- NOTE | 2023-12-04 08:23 | DI.RAD.S_ITS ---
PROCEDURE: XR LUMBAR SPINE MIN 4V INDICATIONS: low back pain TECHNIQUE: 5 views of the lumbar spine were acquired, including bilateral oblique views. COMPARISON: [facility], CR, XR LUMBAR SPINE MIN 4V, 05/29/2022, 8:23. FINDINGS: Bones: 5 nonrib-bearing vertebrae are present. Right-sided L5-S1 hardware fusion posteriorly. Right hip arthroplasty change. Stable trace retrolisthesis L2-3. Anterior bridging osteophytosis without significant change. No vertebral body compression fractures. No suspicious bony lesions. Soft tissues: Overlying bowel gas pattern is normal. No suspicious soft tissue calcifications. Cholecystectomy clips. Oblique images: No pars defects. IMPRESSION: 1. No change in bone alignment or disc spacing. 2. Intact right L5-S1 posterior fusion hardware. Dictated by: Jillian Benitez M.D. on 12/04/2023 at 19:11 Approved by: Jillian Benitez M.D. on 12/04/2023 at 19:13
== END ==
PROVIDERS: PCP Family Medicine; Referring Provider Physical Medicine & Rehabilitation; Visit Provider Physical Medicine & Rehabilitation
DX: M17.0 Bilateral primary osteoarthritis of knee (principal); M46.96 Unspecified inflammatory spondylopathy, lumbar region; I73.9 Peripheral vascular disease, unspecified; M25.562 Pain in left knee; M47.27 Other spondylosis with radiculopathy, lumbosacral region; M48.061 Spinal stenosis, lumbar region without neurogenic claudication; M47.816 Spondylosis without myelopathy or radiculopathy, lumbar region; M75.42 Impingement syndrome of left shoulder; M53.3 Sacrococcygeal disorders, not elsewhere classified; Z98.1 Arthrodesis status; Z85.528 Personal history of other malignant neoplasm of kidney
CPT/HCPCS: 72110; 73562; 99214

== ENCOUNTER → 2024-02-12 07:50 | Outpatient (CLI) | payer MEDICARE, BC, OTHER, SELFPAY ==
[2023-08-03 16:15] VITALS: BMI 33.9
--- NOTE | 2024-02-12 07:53 | DI.US.S_ITS ---
PROCEDURE: US RENAL COMPLETE INDICATIONS: FOLLOW UP ANGIOMYOLIPOMA. HISTORY OF PARTIAL RT NEPHRECTOMY. TECHNIQUE: Real-time scanning was performed of the kidneys and bladder, with image documentation. COMPARISON: [facility], CT, CT ABDOMEN RENAL PROTOCOL, 08/09/2023, 16:00. [facility], US, US RENAL COMPLETE, 11/23/2022, 11:58. FINDINGS: Kidneys: Right: Right kidney measures 11.5 cm long. Right renal cortical thickness is 1.9 cm. There are multiple simple cysts the largest cyst is in the inferior pole measuring 4.4 cm. Left: Left kidney measures 11.4 cm long. Left renal cortical thickness is 1.2 cm. Renal cortical echotexture is normal. There is a nonobstructive stone in the inferior pole measuring 1.2 cm. No hydronephrosis. No suspicious solid mass lesions. Multiple cysts are noted. 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 It appears not significant changed in size since 12/23/2021. Bladder: Pre-void bladder volume is 264 mL. Post-void residual is 117 mL. Pre-void images demonstrate no intraluminal masses or stones. On pre-void images, both ureteral jets are noted with color Doppler interrogation. (Of note, ureteral jets may not be detectable in up to 25% of cases due to insufficient differences in specific gravity between ureteral and bladder urine). Miscellaneous: No free pelvic fluid. IMPRESSION: 1. Nephrolithiasis with a 1.2 mm nonobstructive stone in left kidney. 2. Bilateral renal cysts. 3. 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 4. 117 mL postvoid residual. Dictated by: Concepcion Cheek M.D. on 02/12/2024 at 16:40 Approved by: Concepcion Cheek M.D. on 02/13/2024 at 15:40
== END ==
LOC: US 07:51
PROVIDERS: PCP Family Medicine; Referring Provider Urology; Visit Provider Urology
DX: N28.89 Other specified disorders of kidney and ureter (principal); N20.0 Calculus of kidney; N28.1 Cyst of kidney, acquired; D17.71 Benign lipomatous neoplasm of kidney
CPT/HCPCS: 76770

== ENCOUNTER → 2024-08-27 08:38 | Outpatient (CLI) | payer MEDICARE, BC, OTHER, SELFPAY ==
[2023-08-03 16:15] VITALS: BMI 33.9
--- NOTE | 2024-08-27 | DI.CT.S_ITS ---
PROCEDURE: CT ABDOMEN RENAL PROTOCOL INDICATIONS: RENAL MASS TECHNIQUE: Optional 5 mm thick noncontrast images acquired from the diaphragm to the iliac crests. After the administration of intravenous contrast, 5 mm thick images again acquired from the diaphragm to the iliac crests in the arterial and urographic phases. 5 mm thick coronal and sagittal reformats were then acquired. For radiation dose reduction, the following was used: automated exposure control, adjustment of mA and/or kV according to patient size. COMPARISON: [facility], CT, CT ABDOMEN RENAL PROTOCOL, 08/09/2023, 16:00. FINDINGS: Image quality: Diagnostic. Kidneys and Ureters: Posttreatment changes along the anterior margin of the left kidney, with a targetoid appearance of the ablation bed; this is stable from prior. Focus of fat necrosis along the right posterior kidney is stable from prior. Partial right nephrectomy changes are suspected. OTHER: Lower chest: Stable 4 millimeter juxtapleural nodule in the left lower lobe Liver: No solid mass. Gallbladder: Absent. Biliary ducts: Hyperattenuating material within the common bile duct. Pancreas: Pancreatic cystic lesion measuring 1.5 x 0.7 centimeter, stable from priors. Additional smaller pancreatic cysts are present. Spleen: Size is within normal limits. Adrenal Glands: No adrenal nodules. Stomach and Bowel: Normal colonic caliber, without significant wall thickening. Peritoneum: No abnormal intraperitoneal fluid. No free air. Ventral Wall: No hernia. Abdominal Nodes: No retroperitoneal or mesenteric adenopathy by size criteria. Vessels: Aorta and inferior vena cava are normal in size. Bones: No aggressive osseous abnormality. IMPRESSION: Stable appearance of the kidneys, with suspected right partial nephrectomy and left renal ablation. Hyperattenuating material within the common bile duct, which could represent sludge or stones. No significant intrahepatic or extrahepatic biliary dilation. Pancreatic cystic lesion measuring 1.5 x 0.7 centimeters, without ductal dilation. 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 Attention on follow-up. Dictated by: Pro Bright M.D. on 08/27/2024 at 11:00 Approved by: Pro Bright M.D. on 08/27/2024 at 11:10
== END ==
PROVIDERS: PCP Family Medicine; Referring Provider Urology; Visit Provider Urology
DX: N28.89 Other specified disorders of kidney and ureter (principal); K86.2 Cyst of pancreas; R91.1 Solitary pulmonary nodule; Z90.49 Acquired absence of other specified parts of digestive tract
CPT/HCPCS: 74170; Q9967